=== PATIENT | male | born 1975 | race Caucasian/White ===

== ENCOUNTER → 2017-01-18 | Outpatient (CLI) | payer BC ==
--- NOTE | 2017-01-18 09:11 | US ---
EXAMINATION TYPE: US liver DATE OF EXAM: 01/18/2017 COMPARISON: NONE CLINICAL HISTORY: R94.5 Abnormal Liver Enzymes. EXAM MEASUREMENTS: Liver Length: 18.9 cm Gallbladder Wall: 0.3 cm CBD: 0.3 cm Right Kidney: 12.0 x 5.6 x 5.2 cm Patient of large body habitus Pancreas: Obscured by bowel gas Liver: Increased attenuation, decreased visualization of vessels suggestive of fatty infiltrate, thania e focal fatty sparing adjacent to gallbladder, enlarged Gallbladder: probable non-shadowing stones Evidence for sonographic Joseph's sign: No CBD: wnl Right Kidney: wnl Visualized liver is heterogeneously hyperechoic in appearance. No suspicious intrahepatic ductal dila tation is seen. Evaluation for focal masses is suboptimal due to the heterogeneity. No shadowing mobi le gallstones are seen in gallbladder. Shadowing small round hyperechoic areas could reflect small po lyps or gallbladder sludge. IMPRESSION: Heterogeneous hyperechoic appearance of liver is likely on basis of diffuse fatty infiltr ation, underlying hepatocellular disease is not excluded. Imaging guided random biopsy for tissue franklin lysis can be performed if desired.
== END ==
LOC: RADUSWWP 08:16
PROVIDERS: ATTEND Family Medicine
DX: R94.5 Abnormal results of liver function studies (principal)
CPT/HCPCS: 76705

== ENCOUNTER → 2018-01-18 | Outpatient (CLI) | payer BC ==
--- NOTE | 2018-01-18 18:24 | US ---
EXAMINATION TYPE: US venous doppler duplex LE LT DATE OF EXAM: 01/18/2018 6:09 PM COMPARISON: NONE CLINICAL HISTORY: Pain in left thigh M79.652. Intermittent left leg pain x 3 months SIDE PERFORMED: Left TECHNIQUE: The lower extremity deep venous system is examined utilizing real time linear array sonog feliberto with graded compression, doppler sonography and color-flow sonography. VESSELS IMAGED: External Iliac Vein (EIV) Common Femoral Vein Deep Femoral Vein Greater Saphenous Vein * Femoral Vein Popliteal Vein Small Saphenous Vein * Proximal Calf Veins (* superficial vessels) Left Leg: Appears negative for DVT IMPRESSION: No evidence of deep venous thrombosis in the left leg.
== END | disposition home or self-care (01) ==
LOC: RADUSMAIN 17:43
PROVIDERS: ATTEND Family Medicine
DX: M79.652 Pain in left thigh (principal)

== ENCOUNTER 2018-03-04 22:13 | Observation (INO) | payer BC ==
[2018-03-04] MEDS ORDERED: ASPIRIN 81 MG PO STA (23:05)
--- NOTE | 2018-03-04 23:08 | ED ---
Chest Pain HPI - General Chief Complaint: Chest Pain Stated Complaint: Chest Pain/OPAL Time Seen by Provider: 03/04/18 22:58 Source: patient, RN notes reviewed, old records reviewed Mode of arrival: ambulatory Limitations: no limitations - History of Present Illness Initial Comments: This Patient is a 42-year-old male presents to the emergency department today with chief complaint of onset of left-sided chest pain radiating towards the shoulder at 5 PM this evening. He reports associated symptoms including shortness of breath and occasional diaphoresis. Patient reports that pain seems to be improved with leaning forward. He states that he has no nausea or vomiting episodes. He has no significant previous cardiac history. He is a previous smoker. He quit 4 years ago. No history of early from heart disease with his family. - Related Data Home Medications Medication Instructions Recorded Confirmed Allopurinol [Zyloprim] 100 mg PO DAILY 11/26/13 11/28/13 Allergies Allergy/AdvReac Type Severity Reaction Status Date / Time Penicillins Allergy Unknown Unknown Verified 03/04/18 22:17 Childhood Review of Systems ROS Statement: Those systems with pertinent positive or pertinent negative responses have been documented in the HPI. ROS Other: All systems not noted in ROS Statement are negative. EKG Findings - EKG Comments: EKG Findings:: EKG performed at 2226 shows normal sinus rhythm normal EKG noted. Ventricular rate of 85 bpm. Was 184. QRS duration 90 ms. QT QTc is 340/44 ms. No evidence of ST elevation or T-wave inversion. Past Medical History Past Medical History: No Reported History Additional Past Medical History / Comment(s): hernia, gout, glacuoma History of Any Multi-Drug Resistant Organisms: None Reported Past Surgical History: Hernia Repair Additional Past Surgical History / Comment(s): colonoscopy, rubber band hemorrhoid ligation Past Anesthesia/Blood Transfusion Reactions: No Reported Reaction Past Psychological History: No Psychological Hx Reported Smoking Status: Former smoker Past Alcohol Use History: None Reported Past Drug Use History: None Reported General Exam - General Exam Comments Initial Comments: This is a 42-year-old male. Alert and oriented. No significant distress. Limitations: no limitations General appearance: alert, in no apparent distress Head exam: Present: atraumatic, normocephalic, normal inspection Eye exam: Present: normal appearance, PERRL, EOMI. Absent: scleral icterus, conjunctival injection, periorbital swelling ENT exam: Present: normal exam, mucous membranes moist Neck exam: Present: normal inspection. Absent: tenderness, meningismus, lymphadenopathy Respiratory exam: Present: normal lung sounds bilaterally. Absent: respiratory distress, wheezes, rales, rhonchi, stridor Cardiovascular Exam: Present: regular rate, normal rhythm, normal heart sounds. Absent: systolic murmur, diastolic murmur, rubs, gallop, clicks GI/Abdominal exam: Present: soft, normal bowel sounds. Absent: distended, tenderness, guarding, rebound, rigid Extremities exam: Present: normal inspection, full ROM, normal capillary refill. Absent: tenderness, pedal edema, joint swelling, calf tenderness Back exam: Present: normal inspection Neurological exam: Present: alert, oriented X3, CN II-XII intact Psychiatric exam: Present: normal affect, normal mood Course Vital Signs 03/04/18 03/04/18 03/04/18 22:15 23:47 23:52 Temperature 98.1 F Pulse Rate 101 H 80 92 Respiratory 18 16 16 Rate Blood Pressure 167/88 141/85 138/86 O2 Sat by Pulse 99 98 98 Oximetry 03/04/18 03/05/18 23:57 00:02 Temperature Pulse Rate 67 93 Respiratory 16 16 Rate Blood Pressure 125/75 122/73 O2 Sat by Pulse 96 97 Oximetry - Reevaluation(s) Reevaluation #1: 03/05/18 00:27 Patient is reevaluated this time. He does report that the pain is relieved after receiving nitro. Chest Pain MDM - [facility] 42-year-old male presents emergency Department chief complaint of left-sided chest pain radiating towards his left shoulder. Associated shortness of breath. He writes emergency department hypertensive 170/110. Patient initially EKG was reviewed and negative for any significant changes. He reports the pain seems to be worse on exertion. Patient reports difficult for him to have from the car to the hospital. Initial troponin is negative. He does feel better after receiving nitroglycerin. He was given a by mouth aspirin. He is down relates that the pain is a 4 out of 10. With his symptoms are improving with nitroglycerin like to admit the Patient for serial cardiac enzymes and cardiac consultation. Patient agrees to the admission. All questions answered return parameters were discussed. Chest x-rays negative for any acute cardiopulmonary disease. Normal heart. Disposition Clinical Impression: Chest pain, LANG (dyspnea on exertion) Disposition: ADMITTED IP TO THIS HOSP Condition: Stable Is patient prescribed a controlled substance at d/c from ED?: No Referrals: Bentley Lockhart MD [Primary Care Provider] - 1-2 days Time of Disposition: 00:48
[2018-03-04 23:48] VITALS: RESP 16
[2018-03-04] MEDS: NITROGLYCERIN SL TABS 0.4 MG TAB SUBLINGUAL STA ×3 (23:48→23:58)
[2018-03-05 00:02] LABS: Basophils % (A) 0 %; Eosinophils # (A) 0.3 k/uL (0-0.7); Eosinophils % (A) 2 %; HCT 44.5 % (39.0-53.0); HGB 15.1 gm/dL (13.0-17.5); Lymphocytes # (A) 1.9 k/uL (1.0-4.8); Lymphocytes % (A) 17 %; MCH 29.9 pg (25.0-35.0); MCHC 33.9 g/dL (31.0-37.0); MCV 88.2 fL (80.0-100.0); Mean Platelet Volume 6.9; Monocytes # (A) 0.7 k/uL (0-1.0); Monocytes % (A) 7 %; Neutrophils # (A) 7.9 k/uL (1.3-7.7); Neutrophils % (A) 71 %; Platelet Count 215 k/uL (150-450); RBC 5.04 m/uL (4.30-5.90); RDW 13.2 % (11.5-15.5)
[2018-03-05 00:15] LABS: Partial Thromboplastin Time 26.6 sec (22.0-30.0); Prothrombin Time 10.1 sec (9.0-12.0)
[2018-03-05 00:16] LABS: ALT 59 U/L (21-72); AST 34 U/L (17-59); Albumin 4.1 g/dL (3.5-5.0); Alkaline Phosphatase 90 U/L (38-126); Amylase 42 U/L (30-110); Anion Gap 8 mmol/L; Blood Urea Nitrogen 17 mg/dL (9-20); Calcium 9.7 mg/dL (8.4-10.2); Carbon Dioxide 27 mmol/L (22-30); Chloride 104 mmol/L (98-107); Glucose 111 mg/dL (74-99); Lipase 73 U/L (23-300); Magnesium 1.9 mg/dL (1.6-2.3); Potassium 4.7 mmol/L (3.5-5.1); Sodium 139 mmol/L (137-145); Total Bilirubin 0.7 mg/dL (0.2-1.3); Total Protein 6.9 g/dL (6.3-8.2)
[2018-03-05 00:23] LABS: Creatine Kinase 248 U/L (55-170)
--- NOTE | 2018-03-05 00:23 | XR ---
EXAMINATION TYPE: XR chest 2V DATE OF EXAM: 03/05/2018 COMPARISON: NONE HISTORY: Chest pain TECHNIQUE: Frontal and lateral views of the chest are obtained. FINDINGS: There is no heart failure nor confluent pneumonic infiltrate. Costophrenic angles are rochelle r. Bony thorax is intact. IMPRESSION: No active cardiopulmonary disease. Normal heart.
[2018-03-05 00:36] LABS: Creatine Kinase MB 1.4 ng/mL (0.0-2.4); Troponin I <0.012 ng/mL (0.000-0.034)
[2018-03-05] MEDS ORDERED: NITROGLYCERIN SL TABS 0.4 MG TAB SUBLINGUAL PRN (00:49)
[2018-03-05] MEDS ORDERED: MORPHINE SULFATE 4 MG/ML SYRINGE IV PRN (00:49)
[2018-03-05 02:06] VITALS: BMI 38.5
[2018-03-05 07:01] LABS: Creatine Kinase 196 U/L (55-170)
[2018-03-05 07:14] LABS: Creatine Kinase MB 1.3 ng/mL (0.0-2.4); Troponin I <0.012 ng/mL (0.000-0.034)
--- NOTE | 2018-03-05 11:22 | ECHOF ---
Referral Reason:Chest pain MEASUREMENTS -------- HEIGHT: 182.9 cm WEIGHT: 128.4 kg BP: RVIDd: 2.8 cm (< 3.3) IVSd: 1.2 cm (0.6 - 1.1) LVIDd: 5.0 cm (3.9 - 5.3) LVPWd: 1.5 cm (0.6 - 1.1) IVSs: 1.5 cm LVIDs: 3.3 cm LVPWs: 1.7 cm Ao Diam: 3.2 cm (2.0 - 3.7) AV Cusp: 2.4 cm (1.5 - 2.6) LA Diam: 2.9 cm (2.7 - 3.8) MV EXCURSION: 28.026 mm (> 18.000) MV EF SLOPE: 131 mm/s (70 - 150) EPSS: 1.7 cm MV E Tao: 0.71 m/s MV DecT: 222 ms MV A Tao: 0.66 m/s MV E/A Ratio: 1.08 RAP: 5.00 mmHg RVSP: 9.56 mmHg FINDINGS -------- Sinus rhythm. Morbid Obesity The left ventricular size is normal. There is mild concentric left ventricular hypertrophy. Overa ll left ventricular systolic function is normal with, an EF between 55 - 60 %. The right ventricle is normal in size. The left atrial size is normal. The right atrial size is normal. 5.0mg OF Lumason UTLIZED: 2 OR MORE WALL SEGMENTS NOT VISUALIZED. The aortic valve is trileaflet, and appears structurally normal. No aortic stenosis or regurgitation. Mild mitral regurgitation is present. Mild tricuspid regurgitation present. There is no evidence of pulmonary hypertension. The right v entricular systolic pressure, as measured by Doppler, is 9.56mmHg. The pulmonic valve was not well visualized. The aortic root size is normal. There is no pericardial effusion. CONCLUSIONS -------- 1. Morbid Obesity 2. The left ventricular size is normal. 3. There is mild concentric left ventricular hypertrophy. 4. Overall left ventricular systolic function is normal with, an EF between 55 - 60 %. 5. The right ventricle is normal in size. 6. The left atrial size is normal. 7. The right atrial size is normal. 8. 5.0mg OF Lumason UTLIZED: 2 OR MORE WALL SEGMENTS NOT VISUALIZED. 9. The aortic valve is trileaflet, and appears structurally normal. No aortic stenosis or regurgitati on. 10. Mild mitral regurgitation is present. 11. Mild tricuspid regurgitation present. 12. There is no evidence of pulmonary hypertension. 13. The right ventricular systolic pressure, as measured by Doppler, is 9.56mmHg. 14. The pulmonic valve was not well visualized. 15. The aortic root size is normal. 16. There is no pericardial effusion. SURVEYOR HELPER: Dayana Park RDCS
--- NOTE | 2018-03-05 11:36 | P.CRDCN ---
History of Present Illness History of present illness: Mr. Mcclellan is a pleasant 42-year-old male past medical history significant for gout. He denies history of coronary artery disease, hypertension , dyslipidemia or diabetes mellitus. We have been asked to see him in consultation for chest pain. He states while driving home from work yesterday around 5 PM he started feeling an achy heavy sensation in the left precordial region associated with shortness of breath and mild diaphoresis. The symptoms persisted for approximately one hour and then started radiating into the left shoulder. He continued to feel short of breath and mildly diaphoretic. He denies radiation to the arm, back, neck or jaw. Denies palpitations, dizziness , nausea, vomiting or cough. He states this pain persisted until approximately 10 PM when he came to the hospital for evaluation. He was given sublingual nitroglycerin and states this pain started to subside. No specific aggravating factors he can recall. It seemed to feel mildly better when he sat forward and leaned his head down. He denies associated dizziness, nausea, vomiting or palpitations. At the time of my exam he is seen laying flat in bed in no acute distress. He states his chest feels sore but no further pain. When asked to sit up and lean forward he states the soreness is better. EKG shows sinus mechanism with no acute ST or T-wave abnormalities. Telemetry tracings indicate at 0340 last night he had a second degree type I wenkebach. He was sleeping at the time per nursing staff and had no symptoms. Chest xray is negative for an acute cardiopulmonary process. Laboratory data reviewed, WBC 11, hemoglobin 15.1, platelets 2:15, sodium 139, potassium 4.7, magnesium 1.9, creatinine 0.95, cardiac enzymes negative 2. He takes no daily cardiac medications. Review of Systems At the time of my exam: CONSTITUTIONAL: Denies fever. Denies chills. EYES: Denies blurred vision. Denies vision changes. Denies eye pain. EARS, NOSE, MOUTH & THROAT: Denies headache. Denies sore throat. Denies ear pain. CARDIOVASCULAR: Denies chest pain. Denies shortness of breath. Denies orthopnea. Denies PND. Denies palpitations. RESPIRATORY: Denies cough. GASTROINTESTINAL: Denies abdominal pain. Denies diarrhea. Denies constipation. Denies nausea. Denies vomiting. MUSCULOSKELETAL: Denies myalgias. INTEGUMENTARY: Denies pruitis. Denies rash. NEUROLOGIC: Denies numbness. Denies tingling. Denies weakness. PSYCHIATRIC: Denies anxiety. Denies depression. ENDOCRINE: Denies fatigue. Denies weight change. Denies polydipsia. Denies polyurina. GENITOURINARY: Denies burning, hematuria or urgency with micturation. HEMATOLOGIC: Denies history of anemia. Denies bleeding. Past Medical History Past Medical History: No Reported History Additional Past Medical History / Comment(s): hernia, gout, glaucoma, fatty liver History of Any Multi-Drug Resistant Organisms: None Reported Past Surgical History: Hernia Repair Additional Past Surgical History / Comment(s): colonoscopy, rubber band hemorrhoid ligation, broken collar bone as child Past Anesthesia/Blood Transfusion Reactions: No Reported Reaction Past Psychological History: No Psychological Hx Reported Smoking Status: Former smoker Past Alcohol Use History: None Reported Past Drug Use History: Marijuana Additional Drug Use History / Comment(s): has medical card - Past Family History Mother Family Medical History: Cancer Additional Family Medical History / Comment(s): "female cancer" Father Additional Family Medical History / Comment(s): heroin o/d Medications and Allergies Home Medications Medication Instructions Recorded Confirmed Type Cholecalciferol (Vitamin D3) 2,000 unit PO DAILY 03/05/18 03/05/18 History [Vitamin D3] Febuxostat [Uloric] 40 mg PO DAILY 03/05/18 03/05/18 History Gabapentin [Neurontin] 300 mg PO TID 03/05/18 03/05/18 History Travoprost [Travatan Z 0.004%] 1 drop BOTH EYES HS 03/05/18 03/05/18 History Allergies Allergy/AdvReac Type Severity Reaction Status Date / Time Penicillins Allergy Unknown Unknown Verified 03/04/18 22:17 Childhood Physical Exam Vitals: Vital Signs Temp Pulse Pulse Resp BP BP Pulse Ox 03/05/18 05:55 82 132/78 03/05/18 03:41 16 03/05/18 02:01 97.9 F 81 16 127/83 96 03/05/18 02:00 16 03/05/18 00:02 93 16 122/73 97 03/04/18 23:57 67 16 125/75 96 03/04/18 23:52 92 16 138/86 98 03/04/18 23:47 80 16 141/85 98 03/04/18 22:15 98.1 F 101 H 18 167/88 99 Intake and Output 03/04/18 03/05/18 03/05/18 22:59 06:59 14:59 Other: Voiding Method Toilet # Voids 2 Weight 128.82 kg 128.8 kg Blood pressure 141/96 heart rate 75 afebrile maintaining oxygen saturation on room air GENERAL: This is a 42-year-old male in no apparent distress at the time of my examination. Obese. HEENT: Head is atraumatic, normocephalic. Pupils are equal, round. Sclerae anicteric. Conjunctivae are clear. Mucous membranes of the mouth are moist. Neck is supple. There is no jugular venous distention. No carotid bruit is heard. LUNGS: Clear to auscultation no wheezes, rales or rhonchi. No chest wall tenderness is noted on palpation or with deep breathing. HEART: Regular rate and rhythm without murmurs, rubs or gallops. S1 and S2 heard. ABDOMEN: Soft, nontender. Bowel sounds are heard. No organomegaly noted. EXTREMITIES: No evidence of peripheral edema and no calf tenderness noted. VASCULAR: Radial and dorsalis pedis pulses palpated, no evidence of clubbing. NEUROLOGIC: Patient is awake, alert and oriented x3. Results 03/04/18 23:47 03/04/18 23:47 Cardiac Enzymes 03/04/18 03/04/18 03/05/18 Range/Units 23:47 23:47 06:13 AST 34 (17-59) U/L CK-MB (CK-2) 1.4 1.3 (0.0-2.4) ng/mL Troponin I <0.012 <0.012 (0.000-0.034) ng/mL Coagulation 03/04/18 Range/Units 23:47 PT 10.1 (9.0-12.0) sec APTT 26.6 (22.0-30.0) sec CBC 03/04/18 Range/Units 23:47 WBC 11.0 H (3.8-10.6) k/uL RBC 5.04 (4.30-5.90) m/uL Hgb 15.1 (13.0-17.5) gm/dL Hct 44.5 (39.0-53.0) % Plt Count 215 (150-450) k/uL Comprehensive Metabolic Panel 03/04/18 Range/Units 23:47 Sodium 139 (137-145) mmol/L Potassium 4.7 (3.5-5.1) mmol/L Chloride 104 (98-107) mmol/L Carbon Dioxide 27 (22-30) mmol/L BUN 17 (9-20) mg/dL Creatinine 0.95 (0.66-1.25) mg/dL Glucose 111 H (74-99) mg/dL Calcium 9.7 (8.4-10.2) mg/dL AST 34 (17-59) U/L ALT 59 (21-72) U/L Alkaline Phosphatase 90 (38-126) U/L Total Protein 6.9 (6.3-8.2) g/dL Albumin 4.1 (3.5-5.0) g/dL Current Medications Generic Name Dose Route Start Last Admin Trade Name Freq PRN Reason Stop Dose Admin Aspirin 325 mg 03/06/18 09:00 Aspirin PO DAILY ART Morphine Sulfate 4 mg 03/05/18 00:49 Morphine Sulfate (Inj) IV Q5M PRN Chest Pain Nitroglycerin 0.4 mg 03/05/18 00:49 Nitrostat SUBLINGUAL Q5M PRN Chest Pain Intake and Output 03/04/18 03/05/18 03/05/18 22:59 06:59 14:59 Other: Voiding Method Toilet # Voids 2 Weight 128.82 kg 128.8 kg 03/04/18 23:47 03/04/18 23:47 Assessment and Plan Assessment: ASSESSMENT Chest pain, atypical. An acute coronary event has been ruled out with no EKG evidence of ischemia and negative cardiac enzymes. History of gout Second degree AV block type I, nemesionkeneha PLAN Obtain 2D echocardiogram and doppler study to assess cardiac structure and function. Perform exercise stress echocardiogram to assess for stress induced cardiac ischemia. Recommend he follow up with outpatient sleep study. If stress test is normal he is stable from a cardiac perspective. Thank you kindly for this consultation. Nurse Practitioner note has been reviewed, I agree with a documented findings and plan of care. Patient was seen and examined.
[2018-03-05] MEDS ORDERED: CHOLECALCIFEROL 1,000 UNIT TAB PO SCH (11:45)
[2018-03-05] MEDS ORDERED: ALLOPURINOL 100 MG TAB PO SCH (11:45)
[2018-03-05] MEDS ORDERED: GABAPENTIN 300 MG CAP PO SCH (11:45)
[2018-03-05 11:58] VITALS: BP 146/83; PULSE 90; TEMP 98.4
[2018-03-05] MEDS ORDERED: LATANOPROST 0.005% OPHTH DROPS 2.5 ML BTL BOTH EYES SCH (21:00)
--- NOTE | 2018-03-06 00:05 | HP ---
HISTORY AND PHYSICAL This is a History and Physical and a Discharge Summary. DATE OF ADMISSION: 03/05/2018. DATE OF DISCHARGE: 03/05/2018. FINAL DIAGNOSES: 1. Left anterior chest wall pain, probably musculoskeletal. 2. Chronic gout. 3. Fatty liver. 4. Gastroesophageal reflux disease. 5. Obesity, body mass index (BMI) 38.4. PRESENTING COMPLAINT: Chest pain. HISTORY OF PRESENTING COMPLAINT: This is a very pleasant 42-year-old patient who follows with Dr. Lockhart. Chronic stable medical conditions include gout, fatty liver, GERD, obesity. The patient was driving home from work when she developed sharp left anterior chest wall pain, lasted for a good 5 to 6 hours. Did go and radiate to his left shoulder. The patient was short of breath. No dizziness. Did have a bit of a sweating episode. Decided to come in. Did not remember picking up anything heavy. Denies any cardiac history. The patient admitted for possible unstable angina, for further cardiac workup. REVIEW OF SYSTEMS: CONSTITUTIONAL: None. HEENT: None. RESPIRATORY: None. CARDIOVASCULAR: As above. GASTROINTESTINAL: Heartburn. GENITOURINARY: None. MUSCULOSKELETAL: As above. DERMATOLOGICAL: None. HEMATOLOGIC: None. LYMPHATIC: None. PSYCHIATRY: None. NEUROLOGIC: None. PAST MEDICAL HISTORY: Gout, fatty liver, GERD. PAST SURGICAL HISTORY: Hernia repair, colonoscopy, rubber band hemorrhoid ligation, broken collarbone. SOCIAL HISTORY: The patient has a marijuana card for glaucoma. Lives with his mother. Works in a company for [employer]. Did smoke in the past. No alcohol. No recreational drugs. FAMILY HISTORY: Mother had female cancer. HOME MEDICATIONS: 1. Neurontin 300 mg t.i.d. 2. Travatan 0.004% 1 drop to both eyes at bedtime. 3. Dilaudid 40 mg p.o. daily. 4. Vitamin D3, 2000 units p.o. daily. ALLERGIES: PENICILLIN. PHYSICAL EXAMINATION: VITAL SIGNS: On presentation, temperature 97.9 pulse 81, respirations 16, blood pressure 127/63, pulse 96 percent on room air. GENERAL APPEARANCE: Well built. BMI 38.4. Sitting up, comfortable. EYES: Pupils are equal. Conjunctivae normal. HEENT: External nose and ears normal. Oral cavity normal. NECK: JVD not raised. Mass not palpable. Respiratory effort normal. LUNGS: Clear. CARDIOVASCULAR: First and second heart sounds are normal. No edema. ABDOMEN: Soft, nontender. Liver and spleen not palpable. LYMPHATIC: No lymph nodes palpable in neck or axillae. PSYCHIATRY: Alert and oriented x3. Mood and affect normal. NEUROLOGIC: Pupils equal. Cranial nerves grossly intact. Power and sensation grossly intact. INVESTIGATIONS: White count 11, hemoglobin 15.1, potassium 4.7. Troponin x2 normal. TSH normal. EKG tracing interpreted by me shows sinus rhythm. Chest x-ray film interpreted by me shows lung francois to be clear. A 2D echocardiogram shows preserved LV function. I was given a verbal report by the nurse, the patient's stress echocardiogram came to back to be negative. DISPOSITION: Home. DISCHARGE MEDICATIONS: Home medications to continue. FOLLOWUP: Follow up with Dr. Lockhart in 3 days. MMODL / IJN: [id number] /
[2018-03-06] MEDS ORDERED: ASPIRIN 325 MG TAB PO SCH (09:00)
--- NOTE | 2018-03-06 16:16 | ECHOS ---
STRESS ECHOCARDIOGRAM INDICATIONS: Chest pain. BASELINE HEART RATE: 95 BASELINE BLOOD PRESSURE: 125/65 MAXIMUM HEART RATE: 156 MAXIMUM BLOOD PRESSURE: 222/56 85% MPHR: 151 100% MPHR: 178 METS: 7.1 MAXIMUM STAGE REACHED: 2 TOTAL EXERCISE TIME: 5:00 CLINICAL INFORMATION: The patient was exercised for a total period of 5 minutes. The peak heart rate of 156 was achieved. Maximum blood pressure of 218/77 mmHg was noted. The patient did not complain of any chest pain during the test. The resting EKG shows normal sinus rhythm with normal NM interval and QRS duration and normal ST-T waves. At the peak exercise J- point depression with upsloping ST segments are noted. The baseline echocardiographic images reveals normal left ventricular chamber size with normal left ventricular systolic function. In the immediate postexercise normal increase in the wall thickness and contractility is noted. FINAL IMPRESSION: This stress echocardiographic study is negative for stress-induced ischemia. EKG portion of the stress test is not suggestive of ischemia. MMODL / IJN: [id number] /
== END 2018-03-05 16:27 | disposition home or self-care (01) ==
LOC: EC 22:13 → 3OBS 03-05 00:48
PROVIDERS: ADMIT Hospitalist; ATTEND Hospitalist
DX: R07.89 Other chest pain (principal); I44.1 Atrioventricular block, second degree; R61 Generalized hyperhidrosis; K76.0 Fatty (change of) liver, not elsewhere classified; H40.9 Unspecified glaucoma; E66.9 Obesity, unspecified; Z68.38 Body mass index [BMI] 38.0-38.9, adult; M1A.9XX0 Chronic gout, unspecified, without tophus (tophi); K21.9 Gastro-esophageal reflux disease without esophagitis; Z79.899 Other long term (current) drug therapy; Z88.0 Allergy status to penicillin; Z87.891 Personal history of nicotine dependence; Z80.49 Family history of malignant neoplasm of other genital organs; Z81.3 Family history of other psychoactive substance abuse and dependence
CPT/HCPCS: 99285 ×2; 36415; 93005; 93306; 93351; 80053; 84443; 82150; 82550 ×2; 82553 ×2; 83690; 83735; 84484 ×2; 85025; 85610; 85730; 71046; G0378; Q9950

== ENCOUNTER → 2019-11-13 | Outpatient (CLI) | payer BC ==
--- NOTE | 2019-11-13 11:51 | XR ---
EXAMINATION TYPE: XR ribs RT DATE OF EXAM: 11/13/2019 CLINICAL HISTORY: Pain, Fall Four views of the ribs fail demonstrate evidence for displaced rib fracture or secondary sign of rib fracture. Visualized lungs are clear. No evidence for pneumothorax. IMPRESSION: 1. No displaced rib fractures seen. ICD 10 NO FRACTURE, INITIAL EVALUATION
--- NOTE | 2019-11-13 11:51 | XR ---
EXAMINATION TYPE: XR chest 2V DATE OF EXAM: 11/13/2019 COMPARISON: NONE HISTORY: Chest pain TECHNIQUE: Frontal and lateral views of the chest are obtained. FINDINGS: There is no focal air space opacity. No evidence for pneumothorax. No pleural effusion. The cardiac silhouette size is within normal limits. The osseous structures are grossly intact. IMPRESSION: 1. No acute cardiopulmonary process.
== END | disposition home or self-care (01) ==
LOC: RADXRMAIN 11:25
PROVIDERS: ATTEND Family Medicine
DX: R10.11 Right upper quadrant pain (principal)
CPT/HCPCS: 71046

== ENCOUNTER 2020-01-27 10:35 | Inpatient (IN) | payer BC ==
[2020-01-27] MEDS ORDERED: SODIUM CHLORIDE 0.9% 1,000 ML IV STA ×2 (10:45→12:15)
[2020-01-27] MEDS ORDERED: ONDANSETRON 4 MG/2 ML VIAL IVP STA (10:45)
--- NOTE | 2020-01-27 10:48 | ED ---
Abdominal Pain HPI - General Chief Complaint: Abdominal Pain Stated Complaint: abd pain Time Seen by Provider: 01/27/20 10:39 Source: patient, RN notes reviewed Mode of arrival: ambulatory Limitations: no limitations - History of Present Illness Initial Comments: This a 44-year-old male presents emergency Department with chief complaint of right lower quadrant abdominal pain. Patient states that increase pain last couple days. Patient went seen his primary care physician's morning who recommended from the research rule out acute appendicitis. Patient states that he did have increasing nausea and vomiting today. Denies any back pain he's had prior left inguinal hernia surgery. Patient has no dysuria no hematuria no fevers or chills no chest pain or shortness breath. - Related Data Home Medications Medication Instructions Recorded Confirmed Cholecalciferol (Vitamin D3) 2,000 unit PO DAILY 03/05/18 01/27/20 [Vitamin D3] Febuxostat [Uloric] 40 mg PO DAILY 03/05/18 01/27/20 Travoprost [Travatan Z 0.004%] 1 drop BOTH EYES HS 03/05/18 01/27/20 Allergies Allergy/AdvReac Type Severity Reaction Status Date / Time Penicillins Allergy Unknown Unknown Verified 01/27/20 11:05 Childhood Review of Systems ROS Statement: Those systems with pertinent positive or pertinent negative responses have been documented in the HPI. ROS Other: All systems not noted in ROS Statement are negative. Past Medical History Past Medical History: No Reported History Additional Past Medical History / Comment(s): hernia, gout, glaucoma, fatty l iver History of Any Multi-Drug Resistant Organisms: None Reported Past Surgical History: Hernia Repair Additional Past Surgical History / Comment(s): colonoscopy, rubber band hemorrhoid ligation, broken collar bone as child Past Anesthesia/Blood Transfusion Reactions: No Reported Reaction Past Psychological History: No Psychological Hx Reported Smoking Status: Former smoker Past Alcohol Use History: None Reported Past Drug Use History: Marijuana - Past Family History Mother Family Medical History: Cancer Additional Family Medical History / Comment(s): "female cancer" Father Additional Family Medical History / Comment(s): heroin o/d General Exam Limitations: no limitations General appearance: alert, in no apparent distress Head exam: Present: atraumatic, normocephalic, normal inspection Eye exam: Present: normal appearance, PERRL, EOMI. Absent: scleral icterus, conjunctival injection, periorbital swelling Neck exam: Present: normal inspection, full ROM. Absent: tenderness, meningismus, lymphadenopathy Respiratory exam: Present: normal lung sounds bilaterally. Absent: respiratory distress, wheezes, rales, rhonchi, stridor Cardiovascular Exam: Present: regular rate, normal rhythm, normal heart sounds. Absent: systolic murmur, diastolic murmur, rubs, gallop, clicks GI/Abdominal exam: Present: soft, tenderness (Moderate right lower quadrant tenderness), normal bowel sounds. Absent: distended, guarding, rebound, rigid Back exam: Absent: CVA tenderness (R), CVA tenderness (L) Neurological exam: Present: alert, oriented X3 Skin exam: Present: warm, dry, intact, normal color. Absent: rash Course Vital Signs 01/27/20 10:38 Temperature 98.6 F Pulse Rate 84 Respiratory 19 Rate Blood Pressure 150/97 O2 Sat by Pulse 99 Oximetry Medical Decision Making - Medical Decision Making 44-year-old presented for abdominal pain CT shows evidence of 6 cm abscess with omental changes concerning for acute appendicitis with rupture and abscess formation. Patient was started on Levaquin, Flagyl as he has an ALLERGY to penicillin. Patient is given IV fluid hydration and will be admitted to Dr. Foote. - Lab Data Result diagrams: 01/27/20 10:53 01/27/20 10:53 Lab Results 01/27/20 01/27/20 01/27/20 Range/Units 10:53 10:53 10:53 WBC 13.3 H (3.8-10.6) k/uL RBC 5.28 (4.30-5.90) m/uL Hgb 15.7 (13.0-17.5) gm/dL Hct 46.5 (39.0-53.0) % MCV 88.0 (80.0-100.0) fL MCH 29.7 (25.0-35.0) pg MCHC 33.7 (31.0-37.0) g/dL RDW 13.1 (11.5-15.5) % Plt Count 273 (150-450) k/uL Neutrophils % 74 % Lymphocytes % 15 % Monocytes % 7 % Eosinophils % 2 % Basophils % 1 % Neutrophils # 9.9 H (1.3-7.7) k/uL Lymphocytes # 1.9 (1.0-4.8) k/uL Monocytes # 1.0 (0-1.0) k/uL Eosinophils # 0.3 (0-0.7) k/uL Basophils # 0.1 (0-0.2) k/uL Sodium 138 (137-145) mmol/L Potassium 4.0 (3.5-5.1) mmol/L Chloride 104 (98-107) mmol/L Carbon Dioxide 24 (22-30) mmol/L Anion Gap 10 mmol/L BUN 8 L (9-20) mg/dL Creatinine 0.71 (0.66-1.25) mg/dL Est GFR (CKD-EPI)AfAm >90 (>60 ml/min/1.73 sqM) Est GFR (CKD-EPI)NonAf >90 (>60 ml/min/1.73 sqM) Glucose 111 H (74-99) mg/dL Plasma Lactic Acid Ramin 0.9 (0.7-2.0) mmol/L Calcium 9.2 (8.4-10.2) mg/dL Total Bilirubin 2.3 H (0.2-1.3) mg/dL AST 28 (17-59) U/L ALT 30 (4-49) U/L Alkaline Phosphatase 94 (38-126) U/L Total Protein 7.5 (6.3-8.2) g/dL Albumin 4.4 (3.5-5.0) g/dL Amylase 54 (30-110) U/L Lipase 72 (23-300) U/L Urine Color Urine Appearance (Clear) Urine pH (5.0-8.0) Ur Specific [place] (1.001-1.035) Urine Protein (Negative) Urine Glucose (UA) (Negative) Urine Ketones (Negative) Urine Blood (Negative) Urine Nitrite (Negative) Urine Bilirubin (Negative) Urine Urobilinogen (<2.0) mg/dL Ur Leukocyte Esterase (Negative) 01/27/20 Range/Units 10:57 WBC (3.8-10.6) k/uL RBC (4.30-5.90) m/uL Hgb (13.0-17.5) gm/dL Hct (39.0-53.0) % MCV (80.0-100.0) fL MCH (25.0-35.0) pg MCHC (31.0-37.0) g/dL RDW (11.5-15.5) % Plt Count (150-450) k/uL Neutrophils % % Lymphocytes % % Monocytes % % Eosinophils % % Basophils % % Neutrophils # (1.3-7.7) k/uL Lymphocytes # (1.0-4.8) k/uL Monocytes # (0-1.0) k/uL Eosinophils # (0-0.7) k/uL Basophils # (0-0.2) k/uL Sodium (137-145) mmol/L Potassium (3.5-5.1) mmol/L Chloride (98-107) mmol/L Carbon Dioxide (22-30) mmol/L Anion Gap mmol/L BUN (9-20) mg/dL Creatinine (0.66-1.25) mg/dL Est GFR (CKD-EPI)AfAm (>60 ml/min/1.73 sqM) Est GFR (CKD-EPI)NonAf (>60 ml/min/1.73 sqM) Glucose (74-99) mg/dL Plasma Lactic Acid Ramin (0.7-2.0) mmol/L Calcium (8.4-10.2) mg/dL Total Bilirubin (0.2-1.3) mg/dL AST (17-59) U/L ALT (4-49) U/L Alkaline Phosphatase (38-126) U/L Total Protein (6.3-8.2) g/dL Albumin (3.5-5.0) g/dL Amylase (30-110) U/L Lipase (23-300) U/L Urine Color Yellow Urine Appearance Clear (Clear) Urine pH 7.5 (5.0-8.0) Ur Specific [place] 1.018 (1.001-1.035) Urine Protein Negative (Negative) Urine Glucose (UA) Negative (Negative) Urine Ketones 1+ H (Negative) Urine Blood Negative (Negative) Urine Nitrite Negative (Negative) Urine Bilirubin Negative (Negative) Urine Urobilinogen <2.0 (<2.0) mg/dL Ur Leukocyte Esterase Negative (Negative) Disposition Clinical Impression: Acute appendicitis with appendiceal abscess Disposition: ADMITTED IP TO THIS [facility] Condition: Fair Referrals: Bentley Lockhart MD [Primary Care Provider] - 1-2 days
[2020-01-27 11:01] LABS: Basophils # (A) 0.1 k/uL (0-0.2); Basophils % (A) 1 %; Eosinophils # (A) 0.3 k/uL (0-0.7); Eosinophils % (A) 2 %; HCT 46.5 % (39.0-53.0); HGB 15.7 gm/dL (13.0-17.5); Lymphocytes # (A) 1.9 k/uL (1.0-4.8); Lymphocytes % (A) 15 %; MCH 29.7 pg (25.0-35.0); MCHC 33.7 g/dL (31.0-37.0); Mean Platelet Volume 7.2; Monocytes % (A) 7 %; Neutrophils # (A) 9.9 k/uL (1.3-7.7); Neutrophils % (A) 74 %; Platelet Count 273 k/uL (150-450); RBC 5.28 m/uL (4.30-5.90); RDW 13.1 % (11.5-15.5); WBC 13.3 k/uL (3.8-10.6)
[2020-01-27 11:10] LABS: ALT 30 U/L (4-49); AST 28 U/L (17-59); African American GFR (CKD) >90 (>60 ml/min/1.73 sqM); Albumin 4.4 g/dL (3.5-5.0); Alkaline Phosphatase 94 U/L (38-126); Amylase 54 U/L (30-110); Anion Gap 10 mmol/L; Blood Urea Nitrogen 8 mg/dL (9-20); Calcium 9.2 mg/dL (8.4-10.2); Carbon Dioxide 24 mmol/L (22-30); Chloride 104 mmol/L (98-107); Glucose 111 mg/dL (74-99); Lipase 72 U/L (23-300); Non-African American GFR(CKD) >90 (>60 ml/min/1.73 sqM); Sodium 138 mmol/L (137-145); Total Bilirubin 2.3 mg/dL (0.2-1.3); Total Protein 7.5 g/dL (6.3-8.2)
[2020-01-27 11:17] LABS: Appearance,Urine Clear (Clear); Bilirubin,Urine Negative (Negative); Blood,Urine Negative (Negative); Color,Urine Yellow; Glucose,Urine (UA) Negative (Negative); Ketones,Urine 1+ (Negative); Leukocyte Esterase,Urine Negative (Negative); Nitrite,Urine Negative (Negative); PH, Urine 7.5 (5.0-8.0); Protein,Urine Negative (Negative); Specific Gravity,Urine 1.018 (1.001-1.035); Urobilinogen,Urine <2.0 mg/dL (<2.0)
[2020-01-27] MEDS ORDERED: LEVOFLOXACIN 750MG-D5W PMX 750 MG in DEXTROSE/WATER 1 150ML.BAG IVPB STA (12:10)
[2020-01-27] MEDS ORDERED: HYDROmorphone 0.5 MG/0.5 ML SYRINGE IVP PRN (12:12)
[2020-01-27] MEDS ORDERED: NALOXONE 0.4 MG/ML 1 ML VIAL IV PRN ×2 (12:12→17:56)
--- NOTE | 2020-01-27 12:12 | CT ---
EXAMINATION TYPE: CT abdomen pelvis w con DATE OF EXAM: 01/27/2020 COMPARISON: None INDICATION: RLQ abdominal pain DLP: 2203.3 mGycm, Automated exposure control for dose reduction was used. CONTRAST: 100 ml mL of Isovue 300. Study performed without Oral Contrast TECHNIQUE: Axial images were obtained from above the diaphragm to the pubic rami in the axial plane a t 5 mm thick sections. Reconstructed images are reviewed on the computer in the coronal plane. FINDINGS: Limited CT sections are obtained the lung bases. The lung bases are clear. CT ABDOMEN: Diffuse increased densities along the anterior margin likely is some omental caking. Ther e appears be a fat collection within the oblique left abdominal muscle. Liver: Moderate fatty infiltration is the liver. No discrete masses or cysts are evident. Some minima l ascites may be adjacent to the liver. Spleen: Normal. Minimal ascites is adjacent to the spleen. Pancreas: Normal Adrenal glands: The adrenal glands are normal. Gallbladder: Normal Kidneys: No masses are evident. No hydronephrosis is present. Tiny cortical renal cyst is identifie d on delayed images within the left kidney. A 0.5 cm nonobstructing renal stones in the mid left kidn ey. Delayed images were obtained through the kidneys. Aorta: Vascular calcification is within the aorta. Inferior vena cava: Normal. CT PELVIS: Some free fluid is within the pelvis. Inflammatory changes are adjacent to the ascending colon. There is a 6.6 x 3.2 x 4.8 cm hypodensity w ithin the left paracolic gutter. Abscess should be considered. The studies performed without oral con trast limiting bowel evaluation. Fecal debris is within the distal colon. Appendix: Not identified. Urinary bladder: Decompressed with limited evaluation. Genitourinary structures: Prostate appears normal. Osseous structures: No suspicious lytic or sclerotic lesions. IMPRESSIONS: 1. There is a 6.6 x 3.2 x 4.8 cm hypodensity in the right paracolic gutter inferior to the cecum jina picious for abscess. Correlate for acute appendicitis. The appendix is not identified during this exa m. 2. Small amount of ascites adjacent to the liver spleen and within the pelvis. 3. Diffuse increased density within the anterior intraperitoneal region suspicious for omental caking . 4. Moderate fatty infiltration throughout the liver. 5. Nonobstructing left renal stone. 6. Report was called to emergency room, Jordan Whittaker by by telephone 1207 hours 01/27/2020.
[2020-01-27] MEDS ORDERED: SODIUM CHLORIDE 0.9% 1,000 ML IV SCH (12:15)
[2020-01-27] MEDS: metroNIDAZOLE 500 MG TAB PO SCH ×3 (12:41→22:03)
--- NOTE | 2020-01-27 14:05 | P.GSHP ---
History of Present Illness H&P Date: 01/27/20 Chief Complaint: Abdominal pain CHIEF COMPLAINT: Abdominal pain HISTORY OF PRESENT ILLNESS: 44-year-old male who presented to the emergency room with chief complaint of abdominal pain. Patient states he began having right lower quadrant abdominal pain on Sunday. The pain persisted and he went to his primary care physicians office this morning and was referred to the emergency room. Patient states he was nauseous yesterday. He reports an episode of vomiting this morning. Denies fever or chills. Patient currently rating his pain 7/10. PAST MEDICAL HISTORY: See list. PAST SURGICAL HISTORY: See list. MEDICATIONS: See list. ALLERGIES: See list. SOCIAL HISTORY: No illicit drug use. REVIEW OF SYSTEMS: CONSTITUTIONAL: Denies fever or chills. HEENT: Denies blurred vision, vision changes, or eye pain. Denies hemoptysis CARDIOVASCULAR: Denies chest pain or pressure. RESPIRATORY: No shortness of breath. GASTROINTESTINAL: See HPI for pertinent findings HEMATOLOGIC: Denies bleeding disorders. GENITOURINARY: Denies any blood in urine or increased urinary frequency. SKIN: Denies pruitis. Denies rash. PHYSICAL EXAM: VITAL SIGNS: Reviewed GENERAL: Well-developed in no acute distress. HEENT: No sclera icterus. Extraocular movements grossly intact. Moist buccal mucosa. Head is atraumatic, normocephalic. No nasal drainage. ABDOMEN: Soft. Obese. Nondistended. Tenderness with palpation to right lower quadrant. NEUROLOGIC: Alert and oriented. Cranial nerves II through XII grossly intact. LABORATORY DATA: WBC 13.3. Hemoglobin 15.7. Platelet count 273. Lactic acid 0.9. IMAGING: CT abdomen and pelvis: 6.6 x 3.2 x 4.8 hypodensity in the right paracolic gutter inferior to the cecum suspicious for abscess. Correlate for acute appendicitis. Small amount of ascites adjacent to the liver and spleen and within the pelvis. ASSESSMENT: 1. Abdominal pain 2. Acute appendicitis PLAN: -NPO -Monitor WBC. Continue IV antibiotics -Patient scheduled for laparoscopic appendectomy with Dr. Foote Physician Public Records Researcher note has been reviewed by physician. Signing provider agrees with the documented findings, assessment, and plan of care. Past Medical History Past Medical History: No Reported History Additional Past Medical History / Comment(s): hernia, gout, glaucoma, fatty liver History of Any Multi-Drug Resistant Organisms: None Reported Past Surgical History: Hernia Repair Additional Past Surgical History / Comment(s): colonoscopy, rubber band hemorrhoid ligation, broken collar bone as child Past Anesthesia/Blood Transfusion Reactions: No Reported Reaction Past Psychological History: No Psychological Hx Reported Smoking Status: Former smoker Past Alcohol Use History: None Reported Past Drug Use History: Marijuana - Past Family History Mother Family Medical History: Cancer Additional Family Medical History / Comment(s): "female cancer" Father Additional Family Medical History / Comment(s): heroin o/d Medications and Allergies Home Medications Medication Instructions Recorded Confirmed Type Cholecalciferol (Vitamin D3) 2,000 unit PO DAILY 03/05/18 01/27/20 History [Vitamin D3] Febuxostat [Uloric] 40 mg PO DAILY 03/05/18 01/27/20 History Travoprost [Travatan Z 0.004%] 1 drop BOTH EYES HS 03/05/18 01/27/20 History Allergies Allergy/AdvReac Type Severity Reaction Status Date / Time Penicillins Allergy Unknown Unknown Verified 01/27/20 11:05 Childhood Surgical - Exam Vital Signs Temp Pulse Resp BP Pulse Ox 98.6 F 84 19 150/97 99 01/27/20 10:38 01/27/20 10:38 01/27/20 10:38 01/27/20 10:38 01/27/20 10:38 Results - Labs 01/27/20 10:53 01/27/20 10:53 Abnormal Lab Results - Last 24 Hours (Table) 01/27/20 01/27/20 01/27/20 Range/Units 10:53 10:53 10:57 WBC 13.3 H (3.8-10.6) k/uL Neutrophils # 9.9 H (1.3-7.7) k/uL BUN 8 L (9-20) mg/dL Glucose 111 H (74-99) mg/dL Total Bilirubin 2.3 H (0.2-1.3) mg/dL Urine Ketones 1+ H (Negative) Diabetes panel 01/27/20 Range/Units 10:53 Sodium 138 (137-145) mmol/L Potassium 4.0 (3.5-5.1) mmol/L Chloride 104 (98-107) mmol/L Carbon Dioxide 24 (22-30) mmol/L BUN 8 L (9-20) mg/dL Creatinine 0.71 (0.66-1.25) mg/dL Glucose 111 H (74-99) mg/dL Calcium 9.2 (8.4-10.2) mg/dL AST 28 (17-59) U/L ALT 30 (4-49) U/L Alkaline Phosphatase 94 (38-126) U/L Total Protein 7.5 (6.3-8.2) g/dL Albumin 4.4 (3.5-5.0) g/dL Calcium panel 01/27/20 Range/Units 10:53 Calcium 9.2 (8.4-10.2) mg/dL Albumin 4.4 (3.5-5.0) g/dL Pituitary panel 01/27/20 Range/Units 10:53 Sodium 138 (137-145) mmol/L Potassium 4.0 (3.5-5.1) mmol/L Chloride 104 (98-107) mmol/L Carbon Dioxide 24 (22-30) mmol/L BUN 8 L (9-20) mg/dL Creatinine 0.71 (0.66-1.25) mg/dL Glucose 111 H (74-99) mg/dL Calcium 9.2 (8.4-10.2) mg/dL Adrenal panel 01/27/20 Range/Units 10:53 Sodium 138 (137-145) mmol/L Potassium 4.0 (3.5-5.1) mmol/L Chloride 104 (98-107) mmol/L Carbon Dioxide 24 (22-30) mmol/L BUN 8 L (9-20) mg/dL Creatinine 0.71 (0.66-1.25) mg/dL Glucose 111 H (74-99) mg/dL Calcium 9.2 (8.4-10.2) mg/dL Total Bilirubin 2.3 H (0.2-1.3) mg/dL AST 28 (17-59) U/L ALT 30 (4-49) U/L Alkaline Phosphatase 94 (38-126) U/L Total Protein 7.5 (6.3-8.2) g/dL Albumin 4.4 (3.5-5.0) g/dL
[2020-01-27] MEDS ORDERED: ONDANSETRON 4 MG/2 ML VIAL ONE (16:09)
[2020-01-27] MEDS ORDERED: HEPARIN SODIUM,PORCINE 5,000 UNIT/ML 1 ML VIAL ONE (16:09)
[2020-01-27] MEDS: HEPARIN SODIUM,PORCINE 5,000 UNIT/ML 1 ML VIAL SQ SCH (16:16)
[2020-01-27] MEDS ORDERED: DEXAMETHASONE SOD PHOSPHATE 10 MG/ML 1 ML VIAL IV ONE (16:16)
[2020-01-27] MEDS ORDERED: GLYCOPYRROLATE 0.2 MG/ML 2 ML VIAL ONE (16:21)
[2020-01-27] MEDS ORDERED: HYDROmorphone (PF) 1 MG/ML ONE (16:21)
[2020-01-27] MEDS ORDERED: PROPOFOL 10 MG/ML 20 ML VIAL IV ONE (16:21)
[2020-01-27] MEDS ORDERED: ROCURONIUM 10 MG/ML (5 ML VIAL) IV ONE (16:21)
[2020-01-27] MEDS ORDERED: fentaNYL (PF) 50 MCG/ML 2 ML AMP ONE (16:21)
[2020-01-27] MEDS ORDERED: SUCCINYLCHOLINE CHLORIDE 100 MG/5 ML SYR IV ONE (16:21)
[2020-01-27] MEDS ORDERED: LIDOCAINE 1% INJ 10MG/ML (20 ML MDV) ONE (16:21)
[2020-01-27] MEDS ORDERED: MIDAZOLAM 2 MG/2 ML VIAL ONE (16:21)
[2020-01-27] MEDS ORDERED: NEOSTIGMINE 1 MG/ML 10 ML VIAL ONE (16:21)
[2020-01-27] MEDS ORDERED: LACTATED RINGERS 1,000 ML IV ONE ×2 (16:22→17:06)
--- NOTE | 2020-01-27 17:56 | P.OP ---
Date of Procedure: 01/27/20 Preoperative Diagnosis: Acute perforated appendicitis with abscess Postoperative Diagnosis: Acute perforated appendicitis with abscess Meckel's diverticulum Procedure(s) Performed: Diagnostic laparoscopy Right colectomy Excision of Meckel's diverticulum Anesthesia: MARBIN Surgeon: Juancarlos Foote Estimated Blood Loss (ml): 100 Pathology: other (Right colon, small bowel containing Meckel's diverticulum) Condition: stable Disposition: PACU Description of Procedure: The patient's placed the operative table in supine position. He received general anesthesia. His abdomen was prepped and draped usual fashion. A supraumbilical skin incision was made and then using a [place] clamp the umbilicus was grasped and then the Veress needle was placed in the pleural cavity. Position of the Veress needle was confirmed with positive drop test. The abdomen was insufflated after adequate insufflation the 5 mm trochars placed. Cavity. And then the laparoscope was placed. Cavity. There were significant adhesions in the right lower quadrant. This time is to convert procedure pro cedure. The trochars withdrawn. A midline skin incision was made and then using cautery and subcu tissue divided and then the fascia of the abdominal wall was divided. The Bookwalter wound. The patient had significant adhesions in the right lower quadrant. A abscess cavity was entered. There was intense inflammatory reaction around the cecum and terminal ileum. At this point decided to mobilize the right colon. The mesentery is very inflamed. There was some bleeding from the mesentery and this was ligated with 3-0 GI silk sutures. At this point the descending colon was transected with a GI stapler and then the terminal ileum was transected with a GI stapler. Using the Enseal device the mesentery the bowel was divided. The small bowel was examined. The peritoneum Meckel's diverticulum approximately 3 inches from the distal small bowel staple line at this point the small bowel was transected proximal to the Meckel's diverticulum and then using incentive device the mesentery the bowel was divided and then the Meckel's diverticulum sent to pathology. A [id number] functional end-to-end staple anastomosis was then created between the terminal ileum and the ascending colon using the MERCEDES and TA stapler. A 3-0 GI silk sutures as a crotch stitch. The abdomen was irrigated there is no bleeding seen. The fascia was closed with looped #1 PDS suture. A GWEN drain placed in the right lower quadrant brought through separate stab incision. The skin was closed loosely with kemi several Telfa teresa placed a wound. Patient received sterile dressing he tolerated procedure well and sent to recovery room stable condition.
[2020-01-27] MEDS: HYDROmorphone 1 MG/ML 1 ML SYRINGE IVP ONE ×2 (18:15→18:22)
[2020-01-27] MEDS ORDERED: HYDROmorphone 1 MG/ML 1 ML SYRINGE IVP ONE ×2 (19:10→19:15)
[2020-01-27] MEDS: HYDROmorphone 1 MG/ML 1 ML SYRINGE IVP PRN (20:19)
--- NOTE | 2020-01-27 21:52 | P.CONS ---
History of Present Illness - Reason for Consult Consult date: 01/27/20 Medical management Requesting physician: Juancarlos Foote - Chief Complaint Abdominal pain - History of Present Illness Consultation: This is a 44-year-old patient of Dr. JENKINS. Chronic stable medical conditions include fatty liver, gout, glaucoma, obesity. Patient's rate is a was started on with increasing right lower quadrant abdominal pain. So D progress to get worse. Yesterday done with nausea and today had some vomiting. He presented to the ER. Computed tomography scan of the abdomen showed a possible abscess. Patient was taken to the operating room. Patient's ultrasound of significant adhesions in the right lower quadrant. Abscess cavity was noted. Around the cecum and the terminal ileum. Part of the abdominal ileum and ascending colon.- Resected. GWEN drain was placed. Review of systems: GEN.: Tired EYES: None HEENT: None NECK: None RESPIRATORY: None CARDIOVASCULAR: None GASTROINTESTINAL: [As above GENITOURINARY: None MUSCULOSKELETAL: None LYMPHATICS: None HEMATOLOGICAL: None PSYCHIATRY: None NEUROLOGICAL: None Past medical history to include: Gout, glaucoma, fatty liver Social history: Patient does smoke in the past. Does medical marijuana. Lives with his mother. Does epoxy floors Physical examination: VITAL SIGNS: 98.9, 83, 18, and 59/84, 97% on 2 L GENERAL: BMI 38.1, laying in bed, tired. EYES: Pupils equal. Conjunctiva normal. HEENT: External appearance of nose and ears normal, oral cavity grossly normal. NECK: JVD not raised; masses not palpable. HEART: First and second heart sounds are normal; no edema. LUNGS: Respiratory rate normal; clear to auscultation. ABDOMEN: Soft, tender, right lower quadrant GWEN drain, liver spleen not palpable, no masses palpable. PSYCH: Alert and oriented x3; mood and affect normal. NEUROLOGICAL: Cranial nerves grossly intact; no facial asymmetry, power and sensation grossly intact. LYMPHATICS: No lymph nodes palpable in the axilla and neck INVESTIGATIONS, reviewed in the clinical context: White count 13.3 hemoglobin 13.7 potassium 4.0 crit 0.71 Computed tomography scan of the abdomen pelvis-abscess and right lower quadrant, moderate fatty infiltration, nonobstructing left renal stone Assessment: -Right lower abdomen abscess could be from appendix resulting in resection of terminal small bowel and portion of the ascending colon, the GWEN drain -Obesity BMI 38.1 -Chronic gout -Nonalcoholic fatty liver disease -Nonobstructive left kidney stone Plan: Patient is on on IV Levaquin and Flagyl. We will add IV fluids. Subcu heparin for DVT prophylaxis. Switch to IV Flagyl. Has a GWEN drain. Thank you Dr. Foote Past Medical History Past Medical History: No Reported History Additional Past Medical History / Comment(s): hernia, gout, glaucoma, fatty liver History of Any Multi-Drug Resistant Organisms: None Reported Past Surgical History: Hernia Repair Additional Past Surgical History / Comment(s): colonoscopy, rubber band hemorrhoid ligation, broken collar bone as child Past Anesthesia/Blood Transfusion Reactions: No Reported Reaction Past Psychological History: No Psychological Hx Reported Smoking Status: Former smoker Past Alcohol Use History: None Reported Past Drug Use History: Marijuana Additional Drug Use History / Comment(s): has medical card - Past Family History Mother Family Medical History: Cancer Additional Family Medical History / Comment(s): "female cancer" Father Additional Family Medical History / Comment(s): heroin o/d Medications and Allergies Home Medications Medication Instructions Recorded Confirmed Type Cholecalciferol (Vitamin D3) 2,000 unit PO DAILY 03/05/18 01/27/20 History [Vitamin D3] Febuxostat [Uloric] 40 mg PO DAILY 03/05/18 01/27/20 History Travoprost [Travatan Z 0.004%] 1 drop BOTH EYES HS 03/05/18 01/27/20 History Allergies Allergy/AdvReac Type Severity Reaction Status Date / Time Penicillins Allergy Unknown Unknown Verified 01/27/20 16:03 Childhood Physical Exam Vitals: Vital Signs Temp Pulse Pulse Pulse Resp BP BP 01/27/20 20:25 85 20 159/84 01/27/20 19:55 98.9 F 83 18 180/94 01/27/20 19:15 88 16 168/87 01/27/20 19:00 90 16 169/90 01/27/20 18:45 81 16 176/83 01/27/20 18:30 80 16 170/83 01/27/20 18:23 91 20 170/91 01/27/20 18:08 85 20 194/96 01/27/20 17:53 97.9 F 82 22 192/103 01/27/20 16:23 98.1 F 90 18 01/27/20 15:00 90 20 131/80 01/27/20 12:33 98.7 F 87 14 146/90 01/27/20 12:27 83 18 138/90 01/27/20 10:38 98.6 F 84 19 150/97 BP Pulse Ox 01/27/20 20:25 97 01/27/20 19:55 97 01/27/20 19:15 93 L 01/27/20 19:00 96 01/27/20 18:45 93 L 01/27/20 18:30 93 L 01/27/20 18:23 97 01/27/20 18:08 98 01/27/20 17:53 94 L 01/27/20 16:23 154/94 98 01/27/20 15:00 96 01/27/20 12:33 96 01/27/20 12:27 98 01/27/20 10:38 99 Intake and Output 01/27/20 01/27/20 01/27/20 06:59 14:59 22:59 Intake Total 1400 Output Total 270 Balance 1130 Intake: IV 1400 Output: Drainage 70 Right Abdomen 70 Estimated Blood Loss 200 Other: Weight 127.459 kg 127.459 kg Results CBC & Chem 7: 01/27/20 10:53 01/27/20 10:53 Labs: Abnormal Lab Results - Last 24 Hours (Table) 01/27/20 01/27/20 01/27/20 Range/Units 10:53 10:53 10:57 WBC 13.3 H (3.8-10.6) k/uL Neutrophils # 9.9 H (1.3-7.7) k/uL BUN 8 L (9-20) mg/dL Glucose 111 H (74-99) mg/dL Total Bilirubin 2.3 H (0.2-1.3) mg/dL Urine Ketones 1+ H (Negative)
[2020-01-28] MEDS: HEPARIN SODIUM,PORCINE 5,000 UNIT/ML 1 ML VIAL SQ SCH ×4 (00:08→23:27)
[2020-01-28] MEDS: HYDROmorphone 1 MG/ML 1 ML SYRINGE IVP PRN ×6 (00:08→20:35)
[2020-01-28] MEDS: ONDANSETRON 4 MG/2 ML VIAL IVP PRN ×2 (02:49→16:39)
[2020-01-28] MEDS ORDERED: LEVOFLOXACIN 500MG-D5W PMX 500 MG in DEXTROSE/WATER 1 100ML.BAG IVPB SCH (08:00)
[2020-01-28] MEDS: PANTOPRAZOLE 40 MG/10 ML VIAL IVP SCH (08:28)
[2020-01-28] MEDS: CEFEPIME 2 GM in SODIUM CHLORIDE 0.9% 100 ML IVPB SCH ×2 (08:29→20:35)
[2020-01-28 09:05] LABS: Basophils % (A) 0 %; Eosinophils % (A) 0 %; HGB 14.4 gm/dL (13.0-17.5); Lymphocytes # (A) 0.9 k/uL (1.0-4.8); Lymphocytes % (A) 5 %; MCH 29.4 pg (25.0-35.0); MCHC 32.8 g/dL (31.0-37.0); MCV 89.7 fL (80.0-100.0); Mean Platelet Volume 7.5; Monocytes # (A) 1.1 k/uL (0-1.0); Monocytes % (A) 7 %; Neutrophils # (A) 14.8 k/uL (1.3-7.7); Neutrophils % (A) 87 %; Platelet Count 309 k/uL (150-450); RDW 13.2 % (11.5-15.5); WBC 17.1 k/uL (3.8-10.6)
[2020-01-28] MEDS: metroNIDAZOLE 500 MG TAB PO SCH ×3 (10:35→23:27)
--- NOTE | 2020-01-28 14:12 | P.PN ---
Subjective Progress Note Date: 01/28/20 CHIEF COMPLAINT: Acute appendicitis with ruptured appendix HISTORY OF PRESENT ILLNESS: Patient is postop day #1 right colectomy and excision of Meckel's diverticulum for acute perforated appendicitis with abscess. Patient reports that his abdominal pain is controlled. He denies any nausea or vomiting. He is tolerating ice chips. He is having some burping. Denies any flatness or bowel movement. White count has gone up from 13.3-17.1. Cefepime started by infectious disease. Remains afebrile. PHYSICAL EXAM: VITAL SIGNS: Reviewed. GENERAL: Well-developed in no acute distress. HEENT: No sclera icterus. Extraocular movements grossly intact. Moist buccal mucosa. Head is atraumatic, normocephalic. ABDOMEN: Soft. Nondistended. Mild tenderness with palpation. Incision along midline. Dressing has some mild bloody drainage. Patient has GWEN tube with serosanguineous fluid NEUROLOGIC: Alert and oriented. Cranial nerves II through XII grossly intact. ASSESSMENT: 1. Acute perforated appendicitis with abscess. Postop day #1 right colectomy and excision of Meckel's diverticulum PLAN: Continue antibiotics per infectious disease Continue ice chips Continue pain medications for pain control Continue GI and DVT prophylaxis Physician Group Exercise Instructor note has been reviewed by physician. Signing provider agrees with the documented findings, assessment, and plan of care. Objective - Vital Signs Vital signs: Vital Signs Temp 97.6 F 01/28/20 08:04 Pulse 70 01/28/20 08:04 Resp 16 01/28/20 08:04 BP 164/85 01/28/20 08:04 Pulse Ox 94 L 01/28/20 01:13 Intake & Output 01/27/20 01/28/20 01/28/20 18:59 06:59 18:59 Intake Total 1400 1160 Output Total 130 250 20 Balance 1270 910 -20 Weight 127.459 kg 127.459 kg Intake: IV 1400 Intake, IV Titration 1160 Amount Sodium Chloride 0.9% 1, 1160 000 ml @ 100 mls/hr IV . Q10H [facility] Rx#:[id number] Output: Drainage 180 20 Right Abdomen 180 20 Estimated Blood Loss 130 70 Other: Voiding Method Urinal # Voids 2 - Labs CBC & Chem 7: 01/28/20 08:12 01/27/20 10:53 Labs: Abnormal Lab Results - Last 24 Hours (Table) 01/28/20 Range/Units 08:12 WBC 17.1 H (3.8-10.6) k/uL Neutrophils # 14.8 H (1.3-7.7) k/uL Lymphocytes # 0.9 L (1.0-4.8) k/uL Monocytes # 1.1 H (0-1.0) k/uL
--- NOTE | 2020-01-28 22:34 | P.PN ---
Progress Note - Text Progress Note Date: 01/28/20 - Chief Complaint Abdominal pain - History of Present Illness Consultation: This is a 44-year-old patient of Dr. JENKINS. Chronic stable medical conditions include fatty liver, gout, glaucoma, obesity. Patient's rate is a was started on with increasing right lower quadrant abdominal pain. So D progress to get worse. Yesterday done with nausea and today had some vomiting. He presented to the ER. Computed tomography scan of the abdomen showed a possible abscess. Patient was taken to the operating room. Patient's ultrasound of significant adhesions in the right lower quadrant. Abscess cavity was noted. Around the cecum and the terminal ileum. Part of the abdominal ileum and ascending colon.- Resected. GWEN drain was placed. Today-has been up to the bathroom. Some flatus. No bowel movement. No nausea vomiting. On ice chips. GWEN drain in place. Some abdominal pain. Review of systems: Was done for constitutional, cardiovascular, GI, pulmonary. relevant finding as above Active Medications Hydrocodone Bitart/Acetaminophen ([place] 5-325) 1 each PO Q4HR PRN PRN Reason: Pain Heparin Sodium (Porcine) (Heparin) 5,000 unit SQ Q8HR [facility] Last Admin: 01/28/20 16:24 Dose: 5,000 unit Documented by: Hydromorphone HCl (Dilaudid) 0.5 mg IVP Q3HR PRN PRN Reason: Moderate Pain Last Admin: 01/27/20 12:26 Dose: 0.5 mg Documented by: Hydromorphone HCl (Dilaudid) 1 mg IVP Q4HR PRN PRN Reason: Pain Last Admin: 01/28/20 20:35 Dose: 1 mg Documented by: Cefepime HCl 2 gm/ Sodium (Chloride) 100 mls @ 25 mls/hr IVPB Q12HR [facility] Last Admin: 01/28/20 20:35 Dose: 25 mls/hr Documented by: Metronidazole (Flagyl) 500 mg PO TID [facility] Last Admin: 01/28/20 16:24 Dose: 500 mg Documented by: Naloxone HCl (Narcan) 0.2 mg IV Q2M PRN PRN Reason: Opioid Reversal Ondansetron HCl (Zofran) 4 mg IVP Q8HR PRN PRN Reason: Nausea And Vomiting Last Admin: 01/28/20 16:39 Dose: 4 mg Documented by: Pantoprazole Sodium (Protonix) 40 mg IVP DAILY [facility] Last Admin: 01/28/20 08:28 Dose: 40 mg Documented by: Physical examination: VITAL SIGNS: 97.6, 70, 16, 1 6077, 93% on room air GENERAL: Propped up in bed, awake EYES: Pupils equal. Conjunctiva normal. HEENT: External appearance of nose and ears normal, oral cavity grossly normal. NECK: JVD not raised; masses not palpable. HEART: First and second heart sounds are normal; no edema. LUNGS: Respiratory rate normal; clear to auscultation. ABDOMEN: Soft, tender, right lower quadrant GWEN drain, liver spleen not palpable, no masses palpable. PSYCH: Alert and oriented x3; mood and affect normal. INVESTIGATIONS, reviewed in the clinical context: White count 17.1 hemoglobin 14.4 Previous testing White count 13.3 hemoglobin 13.7 potassium 4.0 crit 0.71 Computed tomography scan of the abdomen pelvis-abscess and right lower quadrant, moderate fatty infiltration, nonobstructing left renal stone Assessment: -Right lower abdomen abscess could be from appendix resulting in resection of terminal small bowel and portion of the ascending colon,-GWEN drain -Obesity BMI 38.1 -Chronic gout -Nonalcoholic fatty liver disease -Nonobstructive left kidney stone Plan: Patient is on on IV cefepime and Flagyl. GWEN drain. Remains nothing by mouth except for ice chips. Encouraged to be out of bed. Ambulate. Thank you Dr. Foote
--- NOTE | 2020-01-28 23:24 | P.CONS ---
History of Present Illness - Reason for Consult Consult date: 01/28/20 Perforated appendicitis Requesting physician: Juancarlos Foote - Chief Complaint Right lower quadrant abdominal pain x few days - History of Present Illness Patient is a 44-year-old male presenting to the ER at [facility] yesterday morning. With the chief complains of right lower quadrant abdominal pain, the patient symptom has been going on for about 2 days before presentation to the hospital patient has been mostly in the right lower quadrant area patient described the pain to be more of a sharp and at times colicky with intensity of 7- 8 out of 10 and no radiation patient did have nausea and vomiting But no diarrhea or constipation did have some chills but denies high-grade fever with this and the patient was evaluated by the physician on the Route via the patient has been afebrile patient did have elevated white count of 13,000, patient did have CT of abdominal pelvis and it shows abnormality in the right lower quadrant concerning for appendicitis patient was taken to the OR he was noticed to have a perforated appendicitis status post appendectomy patient was started on Levaquin and Flagyl because of his penicillin ALLERGY this morning his white count was up to 70,000 infection disease was consulted for further management of antibiotic therapy Review of Systems Positive point has been mentioned in the HPI rest of the systems are negative Past Medical History Past Medical History: No Reported History Additional Past Medical History / Comment(s): hernia, gout, glaucoma, fatty liver History of Any Multi-Drug Resistant Organisms: None Reported Past Surgical History: Hernia Repair Additional Past Surgical History / Comment(s): colonoscopy, rubber band hemorrhoid ligation, broken collar bone as child Past Anesthesia/Blood Transfusion Reactions: No Reported Reaction Past Psychological History: No Psychological Hx Reported Smoking Status: Former smoker Past Alcohol Use History: None Reported Past Drug Use History: Marijuana Additional Drug Use History / Comment(s): has medical card - Past Family History Mother Family Medical History: Cancer Additional Family Medical History / Comment(s): "female cancer" Father Additional Family Medical History / Comment(s): heroin o/d Medications and Allergies Home Medications Medication Instructions Recorded Confirmed Type Cholecalciferol (Vitamin D3) 2,000 unit PO DAILY 03/05/18 01/27/20 History [Vitamin D3] Febuxostat [Uloric] 40 mg PO DAILY 03/05/18 01/27/20 History Travoprost [Travatan Z 0.004%] 1 drop BOTH EYES HS 03/05/18 01/27/20 History Allergies Allergy/AdvReac Type Severity Reaction Status Date / Time Penicillins Allergy Unknown Unknown Verified 01/27/20 16:03 Childhood Physical Exam Vitals: Vital Signs Temp Pulse Pulse Pulse Resp BP BP 01/28/20 08:04 97.6 F 70 16 164/85 01/28/20 03:39 18 01/28/20 01:13 97.4 F L 75 15 161/79 01/27/20 21:45 89 157/86 01/27/20 21:30 85 132/83 01/27/20 21:15 97 145/89 01/27/20 21:00 81 20 165/89 01/27/20 20:45 91 159/92 01/27/20 20:30 86 168/92 01/27/20 20:25 85 20 159/84 01/27/20 20:15 94 159/84 01/27/20 20:00 90 149/94 01/27/20 19:55 98.9 F 83 18 180/94 01/27/20 19:45 98.6 F 82 16 180/94 01/27/20 19:15 88 16 168/87 01/27/20 19:00 90 16 169/90 01/27/20 18:45 81 16 176/83 01/27/20 18:30 80 16 170/83 01/27/20 18:23 91 20 170/91 01/27/20 18:08 85 20 194/96 01/27/20 17:53 97.9 F 82 22 192/103 01/27/20 16:23 98.1 F 90 18 01/27/20 15:00 90 20 131/80 01/27/20 12:33 98.7 F 87 14 146/90 01/27/20 12:27 83 18 138/90 01/27/20 10:38 98.6 F 84 19 150/97 BP Pulse Ox 01/28/20 08:04 01/28/20 03:39 01/28/20 01:13 94 L 01/27/20 21:45 01/27/20 21:30 01/27/20 21:15 01/27/20 21:00 01/27/20 20:45 01/27/20 20:30 01/27/20 20:25 97 01/27/20 20:15 01/27/20 20:00 01/27/20 19:55 97 01/27/20 19:45 95 01/27/20 19:15 93 L 01/27/20 19:00 96 01/27/20 18:45 93 L 01/27/20 18:30 93 L 01/27/20 18:23 97 01/27/20 18:08 98 01/27/20 17:53 94 L 01/27/20 16:23 154/94 98 01/27/20 15:00 96 01/27/20 12:33 96 01/27/20 12:27 98 01/27/20 10:38 99 Intake and Output 01/27/20 01/28/20 01/28/20 22:59 06:59 14:59 Intake Total 1600 960 Output Total 310 70 Balance 1290 890 Intake: IV 1400 Intake, IV Titration 200 960 Amount Sodium Chloride 0.9% 1, 200 960 000 ml @ 100 mls/hr IV . Q10H [facility] Rx#:[id number] Output: Drainage 110 70 Right Abdomen 110 70 Estimated Blood Loss 200 Other: Voiding Method Urinal Urinal # Voids 1 2 Weight 127.459 kg GENERAL DESCRIPTION: Middle-aged male lying in bed, no distress. No tachypnea or accessory muscle of respiration use. HEENT: Shows Pallor , no scleral icterus. Oral mucous membrane is dry. No pharyngeal erythema or thrush NECK: Trachea central, no thyromegaly. LUNGS: Unlabored breathing. Clear to auscultation anteriorly. No wheeze or crackle. HEART: S1, S2, regular rate and rhythm. No loud murmur ABDOMEN: Soft, right lower quadrant tenderness , guarding or rigidity, no organomegaly EXTREMITIES: No edema of feet. SKIN: No rash, no masses palpable. NEUROLOGICAL: The patient is awake, alert, oriented x3, mood and affect normal. Results CBC & Chem 7: 01/28/20 08:12 01/27/20 10:53 Labs: Abnormal Lab Results - Last 24 Hours (Table) 01/27/20 01/27/20 01/27/20 Range/Units 10:53 10:53 10:57 WBC 13.3 H (3.8-10.6) k/uL Neutrophils # 9.9 H (1.3-7.7) k/uL BUN 8 L (9-20) mg/dL Glucose 111 H (74-99) mg/dL Total Bilirubin 2.3 H (0.2-1.3) mg/dL Urine Ketones 1+ H (Negative) Assessment and Plan Assessment: 1- patient admitted to hospital with right lower quadrant abdominal pain did have elevated white count diagnosed with acute perforated appendicitis status post appendectomy when he to call for the enteric gram-negative both aerobes and anaerobes to the likely pathogen 2- penicillin ALLERGY that lower limit the number of antibiotics safe t0 use however ALLERGY has been childhood and no clear history of anaphylaxis (1) Penicillin allergy Current Visit: Yes Status: Acute Code(s): Z88.0 - ALLERGY STATUS TO PENICILLIN SNOMED Code(s): 46757811 (2) Acute appendicitis with appendiceal abscess Current Visit: Yes Status: Acute Code(s): K35.33 - ACUTE APPENDICITIS WITH PERF AND LOC PERITONITIS, WITH ABSCS SNOMED Code(s): 387562300 Plan: 1- discontinue Levaquin 2- start the patient cefepime 2 g every 12 hours and continue with the Flagyl We will follow on clinical condition and cultures to further adjust medication if needed Thank you for this consultation will follow this patient with you Time with Patient: Greater than 30
[2020-01-29] MEDS: HYDROmorphone 1 MG/ML 1 ML SYRINGE IVP PRN ×4 (01:06→19:43)
[2020-01-29 08:05] LABS: Basophils % (A) 0 %; Eosinophils % (A) 0 %; HCT 42.8 % (39.0-53.0); Lymphocytes # (A) 1.4 k/uL (1.0-4.8); Lymphocytes % (A) 11 %; MCH 29.3 pg (25.0-35.0); MCHC 32.7 g/dL (31.0-37.0); MCV 89.6 fL (80.0-100.0); Mean Platelet Volume 7.2; Monocytes % (A) 8 %; Neutrophils # (A) 10.3 k/uL (1.3-7.7); Neutrophils % (A) 79 %; Platelet Count 296 k/uL (150-450); RBC 4.78 m/uL (4.30-5.90); RDW 13.2 % (11.5-15.5); WBC 13.1 k/uL (3.8-10.6)
[2020-01-29] MEDS: PANTOPRAZOLE 40 MG/10 ML VIAL IVP SCH (08:28)
[2020-01-29] MEDS: CEFEPIME 2 GM in SODIUM CHLORIDE 0.9% 100 ML IVPB SCH ×2 (08:28→20:41)
[2020-01-29] MEDS: HEPARIN SODIUM,PORCINE 5,000 UNIT/ML 1 ML VIAL SQ SCH ×2 (08:28→16:32)
[2020-01-29] MEDS: ONDANSETRON 4 MG/2 ML VIAL IVP PRN (08:28)
[2020-01-29] MEDS: metroNIDAZOLE 500 MG TAB PO SCH ×3 (08:28→20:41)
--- NOTE | 2020-01-29 11:38 | P.PN ---
Subjective Progress Note Date: 01/29/20 CHIEF COMPLAINT: Acute appendicitis with ruptured appendix HISTORY OF PRESENT ILLNESS: Patient is postop day #2 right colectomy and excision of Meckel's diverticulum for acute perforated appendicitis with abscess. Patient reports that his abdominal pain is controlled. He had one episode of vomiting this morning. He is tolerating ice chips. Denies any flatne ss or bowel movement. WBC is down from 17.1-13.1 Cefepime started by infectious disease. Remains afebrile. PHYSICAL EXAM: VITAL SIGNS: Reviewed. GENERAL: Well-developed in no acute distress. HEENT: No sclera icterus. Extraocular movements grossly intact. Moist buccal mucosa. Head is atraumatic, normocephalic. ABDOMEN: Soft. Nondistended. Diffuse Mild tenderness with palpation. Incision along midline. Dressing has some mild bloody drainage. Patient has GWEN tube with serosanguineous fluid NEUROLOGIC: Alert and oriented. Cranial nerves II through XII grossly intact. ASSESSMENT: 1. Acute perforated appendicitis with abscess. Postop day #2 right colectomy and excision of Meckel's diverticulum PLAN: Continue antibiotics per infectious disease Continue ice chips Continue pain medications for pain control Continue GI and DVT prophylaxis Physician [employer] Consultant note has been reviewed by physician. Signing provider agrees with the documented findings, assessment, and plan of care. Objective - Vital Signs Vital signs: Vital Signs Temp 99.0 F 01/29/20 07:09 Pulse 96 01/29/20 08:28 Resp 18 01/29/20 08:28 BP 158/88 01/29/20 07:09 Pulse Ox 96 01/29/20 07:09 Intake & Output 01/28/20 01/29/20 01/29/20 18:59 06:59 18:59 Intake Total 100 Output Total 130 105 40 Balance -130 -5 -40 Intake: Intake, IV Titration 100 Amount Cefepime 2 gm In Sodium 100 Chloride 0.9% 100 ml @ 25 mls/hr IVPB Q12HR [facility] Rx #:[id number] Output: Drainage 130 105 40 Right Abdomen 130 105 40 Other: Voiding Method Urinal # Voids 3 1 - Labs CBC & Chem 7: 01/29/20 07:42 01/27/20 10:53 Labs: Abnormal Lab Results - Last 24 Hours (Table) 01/29/20 Range/Units 07:42 WBC 13.1 H (3.8-10.6) k/uL Neutrophils # 10.3 H (1.3-7.7) k/uL Microbiology - Last 24 Hours (Table) 01/27/20 12:24 Blood Culture - Preliminary Blood No Growth after 24 hours
--- NOTE | 2020-01-29 13:41 | XR ---
EXAMINATION TYPE: XR abdomen 2V DATE OF EXAM: 01/29/2020 12:52 PM CLINICAL HISTORY: Postoperative ileus. Status post appendectomy. Nausea and vomiting. TECHNIQUE: Supine and upright images of the abdomen and pelvis were obtained COMPARISON: CT abdomen pelvis 01/27/2020. FINDINGS: Right para midline surgical clips. Surgical drain overlies the right lower quadrant. There are gaseous distended small bowel loops, with dilatation measuring up to 5.7 cm. There is gaseous dis tention of the nondilated colon to the level of the descending colon. There is no visceromegaly, pneu moperitoneum, or abnormal calcification appreciated. The lung bases are clear. The osseous structures are intact. IMPRESSION: Diffusely dilated small bowel loops, and gaseous distention to the level of the descending colon. Fin dings likely represent postoperative ileus.
--- NOTE | 2020-01-29 16:32 | PN ---
PROGRESS NOTE DATE OF SERVICE: 01/29/2020 REASON FOR FOLLOWUP: Secondary peritonitis from perforated appendicitis. INTERVAL HISTORY: The patient is currently afebrile, has been breathing comfortably. The patient denies having any chest pain or shortness of breath or cough. Overall abdominal discomfort is slightly decreased. No nausea, no vomiting. PHYSICAL EXAMINATION: Blood pressure 162/100 with a pulse of 107, temperature 98.3. He is 93% on room air. General description is a middle-aged male lying in bed in no distress. RESPIRATORY SYSTEM: Unlabored breathing. Clear to auscultation anteriorly. HEART: S1, S2. Regular rate and rhythm. ABDOMEN: Soft. Mildly distended. No guarding or rigidity. LABS: Hemoglobin is 14, white count 13.1. Blood culture has been negative. DIAGNOSTIC IMPRESSION AND PLAN: Patient with perforated appendicitis, status post appendectomy. The patient is currently covered with the cefepime and Flagyl; to continue while monitoring his clinical course closely. Continue supportive care. MMODL / IJN: [id number] /
--- NOTE | 2020-01-29 19:58 | P.PN ---
Progress Note - Text Progress Note Date: 01/29/20 - Chief Complaint Abdominal pain - History of Present Illness Consultation: This is a 44-year-old patient of Dr. JENKINS. Chronic stable medical conditions include fatty liver, gout, glaucoma, obesity. Patient's rate is a was started on with increasing right lower quadrant abdominal pain. So D progress to get worse. Yesterday done with nausea and today had some vomiting. He presented to the ER. Computed tomography scan of the abdomen showed a possible abscess. Patient was taken to the operating room. Patient's ultrasound of significant adhesions in the right lower quadrant. Abscess cavity was noted. Around the cecum and the terminal ileum. Part of the abdominal ileum and ascending colon.- Resected. GWEN drain was placed. Today-patient vomited this morning. Abdomen distended. No bowel movement or flatus. Having some pain. Up in bed. Review of systems: Was done for constitutional, cardiovascular, GI, pulmonary. relevant finding as above Active Medications Hydrocodone Bitart/Acetaminophen ([place] 5-325) 1 each PO Q4HR PRN PRN Reason: Pain Heparin Sodium (Porcine) (Heparin) 5,000 unit SQ Q8HR [facility] Last Admin: 01/29/20 16:32 Dose: 5,000 unit Documented by: Hydromorphone HCl (Dilaudid) 0.5 mg IVP Q3HR PRN PRN Reason: Moderate Pain Last Admin: 01/27/20 12:26 Dose: 0.5 mg Documented by: Hydromorphone HCl (Dilaudid) 1 mg IVP Q4HR PRN PRN Reason: Pain Last Admin: 01/29/20 19:43 Dose: 1 mg Documented by: Cefepime HCl 2 gm/ Sodium (Chloride) 100 mls @ 25 mls/hr IVPB Q12HR [facility] Last Admin: 01/29/20 08:28 Dose: 25 mls/hr Documented by: Metronidazole (Flagyl) 500 mg PO TID [facility] Last Admin: 01/29/20 16:32 Dose: 500 mg Documented by: Naloxone HCl (Narcan) 0.2 mg IV Q2M PRN PRN Reason: Opioid Reversal Ondansetron HCl (Zofran) 4 mg IVP Q8HR PRN PRN Reason: Nausea And Vomiting Last Admin: 01/29/20 08:28 Dose: 4 mg Documented by: Pantoprazole Sodium (Protonix) 40 mg IVP DAILY [facility] Last Admin: 01/29/20 08:28 Dose: 40 mg Documented by: Physical examination: VITAL SIGNS: 99, 96, 18, 158/88, 96% room air GENERAL: Propped up in bed, awake EYES: Pupils equal. Conjunctiva normal. HEENT: External appearance of nose and ears normal, oral cavity grossly normal. NECK: JVD not raised; masses not palpable. HEART: First and second heart sounds are normal; no edema. LUNGS: Respiratory rate normal; clear to auscultation. ABDOMEN: Soft, distended, bowel sounds absent tender, right lower quadrant GWEN drain, liver spleen not palpable, no masses palpable. PSYCH: Alert and oriented x3; mood and affect normal. INVESTIGATIONS, reviewed in the clinical context: White count 13.1 hemoglobin 14 Abdominal x-ray film personally reviewed by me shows small bowel ileus Previous testing White count 13.3 hemoglobin 13.7 potassium 4.0 crit 0.71 Computed tomography scan of the abdomen pelvis-abscess and right lower quadrant, moderate fatty infiltration, nonobstructing left renal stone Assessment: -Right lower abdomen abscess could be from appendix resulting in resection of terminal small bowel and portion of the ascending colon,-GWEN drain -Obesity BMI 38.1 -Chronic gout -Nonalcoholic fatty liver disease -Nonobstructive left kidney stone -Postop small bowel ileus symptomatic Plan: on IV cefepime and Flagyl. GWEN drain. Remains on ice chills. Spoke to the nurse to see if okay with Dr. Foote to place NG tube to suction. Repeat labs in the morning.. Thank you Dr. Foote
[2020-01-29] MEDS: FAMOTIDINE 20 MG/2 ML VIAL IV SCH (20:43)
[2020-01-30] MEDS: HYDROmorphone 1 MG/ML 1 ML SYRINGE IVP PRN ×2 (00:08→04:16)
[2020-01-30] MEDS: HEPARIN SODIUM,PORCINE 5,000 UNIT/ML 1 ML VIAL SQ SCH ×4 (00:08→23:43)
[2020-01-30 06:52] LABS: Basophils % (A) 0 %; Eosinophils % (A) 0 %; HCT 43.3 % (39.0-53.0); HGB 14.1 gm/dL (13.0-17.5); Lymphocytes # (A) 1.2 k/uL (1.0-4.8); Lymphocytes % (A) 9 %; MCH 29.1 pg (25.0-35.0); MCHC 32.5 g/dL (31.0-37.0); MCV 89.8 fL (80.0-100.0); Mean Platelet Volume 7.3; Monocytes % (A) 8 %; Neutrophils % (A) 81 %; Platelet Count 317 k/uL (150-450); RBC 4.82 m/uL (4.30-5.90); RDW 13.2 % (11.5-15.5); WBC 12.4 k/uL (3.8-10.6)
[2020-01-30 07:21] LABS: African American GFR (CKD) >90 (>60 ml/min/1.73 sqM); Anion Gap 8 mmol/L; Blood Urea Nitrogen 14 mg/dL (9-20); Calcium 8.7 mg/dL (8.4-10.2); Carbon Dioxide 28 mmol/L (22-30); Chloride 101 mmol/L (98-107); Glucose 103 mg/dL (74-99); Magnesium 2.1 mg/dL (1.6-2.3); Non-African American GFR(CKD) >90 (>60 ml/min/1.73 sqM); Potassium 4.2 mmol/L (3.5-5.1); Sodium 137 mmol/L (137-145)
[2020-01-30] MEDS: metroNIDAZOLE 500 MG TAB PO SCH ×3 (08:04→20:27)
[2020-01-30] MEDS: CEFEPIME 2 GM in SODIUM CHLORIDE 0.9% 100 ML IVPB SCH ×2 (08:04→20:27)
[2020-01-30] MEDS: FAMOTIDINE 20 MG/2 ML VIAL IV SCH ×2 (08:04→20:27)
--- NOTE | 2020-01-30 12:30 | P.PN ---
Subjective Progress Note Date: 01/30/20 CHIEF COMPLAINT: Acute appendicitis with ruptured appendix HISTORY OF PRESENT ILLNESS: Patient is postop day #3 right colectomy and excision of Meckel's diverticulum for acute perforated appendicitis with abscess. Patient reports that his abdominal pain is controlled. patient reports 4 episodes of vomiting yesterday.But vomiting did resolve after he started passing gas. no bowel movement yet. He is afebrile. white count has gone down from 13.1-12.4 PHYSICAL EXAM: VITAL SIGNS: Reviewed. GENERAL: Well-developed in no acute distress. HEENT: No sclera icterus. Extraocular movements grossly intact. Moist buccal mucosa. Head is atraumatic, normocephalic. ABDOMEN: Soft. Nondistended. Diffuse Mild tenderness with palpation. In cision along midline. Dressing has some mild bloody drainage. Patient has GWEN tube with serosanguineous fluid NEUROLOGIC: Alert and oriented. Cranial nerves II through XII grossly intact. ASSESSMENT: 1. Acute perforated appendicitis with abscess. Postop day #3 right colectomy and excision of Meckel's diverticulum PLAN: Continue antibiotics per infectious disease advance diet to clears with sips Continue pain medications for pain control Encouraged patient to use incentive spirometer Encourage patient to ambulate Continue GI and DVT prophylaxis Physician [employer] note has been reviewed by physician. Signing provider agrees with the documented findings, assessment, and plan of care. Objective - Vital Signs Vital signs: Vital Signs Temp 97.5 F L 01/30/20 07:26 Pulse 93 01/30/20 07:26 Resp 18 01/30/20 07:26 BP 138/82 01/30/20 07:26 Pulse Ox 95 01/30/20 07:26 Intake & Output 01/29/20 01/30/20 01/30/20 18:59 06:59 18:59 Intake Total 100 Output Total 185 80 50 Balance -185 -80 50 Intake: Oral 100 Output: Drainage 185 80 50 Right Abdomen 185 80 50 Other: Voiding Method Urinal Urinal # Voids 1 1 - Labs CBC & Chem 7: 01/30/20 06:15 01/30/20 06:15 Labs: Abnormal Lab Results - Last 24 Hours (Table) 01/30/20 01/30/20 Range/Units 06:15 06:15 WBC 12.4 H (3.8-10.6) k/uL Neutrophils # 10.0 H (1.3-7.7) k/uL Glucose 103 H (74-99) mg/dL Microbiology - Last 24 Hours (Table) 01/27/20 12:24 Blood Culture - Preliminary Blood No Growth after 48 hours
[2020-01-30 13:42] VITALS: BMI 38.1
--- NOTE | 2020-01-30 13:54 | PN ---
PROGRESS NOTE DATE OF SERVICE: 01/30/2020 REASON FOR FOLLOWUP: Secondary peritonitis from perforated appendicitis. INTERVAL HISTORY: The patient is currently afebrile, has been breathing comfortably. Denies having any chest pain. No shortness of breath or cough. No nausea, no vomiting, no abdominal pain or diarrhea. Has been tolerating his soft diet. PHYSICAL EXAMINATION: Blood pressure 132/82 with a pulse of 93, temperature 97.5. He is 95% on room air. General description is a middle-aged male, lying in bed in no distress. RESPIRATORY SYSTEM: Unlabored breathing, clear to auscultation anteriorly. HEART: S1, S2. Regular rate and rhythm. ABDOMEN: No guarding, no rigidity. LABS: Hemoglobin 14.8, white count 12.4, creatinine 0.75. Blood culture negative. DIAGNOSTIC IMPRESSION AND PLAN: Patient with secondary peritonitis from perforated appendicitis, status post appendectomy. The patient is currently on cefepime and Flagyl to continue as the patient continued to improved and white count normalized. Hopefully, finish therapy with oral Ceftin on a may consider IV. Will monitor clinical course closely. Continue supportive care. MMODL / IJN: [id number] /
[2020-01-30] MEDS: HYDROcodone/APAP 5-325MG 1 EACH TAB PO PRN ×2 (19:46→23:45)
--- NOTE | 2020-01-30 22:54 | P.PN ---
Progress Note - Text Progress Note Date: 01/30/20 - Chief Complaint Abdominal pain Consultation: This is a 44-year-old patient of Dr. JENKINS. Chronic stable medical conditions include fatty liver, gout, glaucoma, obesity. Patient's rate is a was started on with increasing right lower quadrant abdominal pain. So D progress to get worse. Yesterday done with nausea and today had some vomiting. He presented to the ER. Computed tomography scan of the abdomen showed a possible abscess. Patient was taken to the operating room. Patient's ultrasound of significant adhesions in the right lower quadrant. Abscess cavity was noted. Around the cecum and the terminal ileum. Part of the abdominal ileum and ascending colon.- Resected. GWEN drain was placed.follow-up x-ray did show ileus. Today-patient on clear liquids. Did pass some flatus today. Some decrease in distention. No nausea vomiting. Review of systems: Was done for constitutional, cardiovascular, GI, pulmonary. relevant finding as above Active Medications Hydrocodone Bitart/Acetaminophen ([place] 5-325) 1 each PO Q4HR PRN PRN Reason: Pain Last Admin: 01/30/20 19:46 Dose: 1 each Documented by: Famotidine (Pepcid) 20 mg IV Q12HR [facility] Last Admin: 01/30/20 20:27 Dose: 20 mg Documented by: Heparin Sodium (Porcine) (Heparin) 5,000 unit SQ Q8HR [facility] Last Admin: 01/30/20 17:25 Dose: 5,000 unit Documented by: Hydromorphone HCl (Dilaudid) 0.5 mg IVP Q3HR PRN PRN Reason: Moderate Pain Last Admin: 01/27/20 12:26 Dose: 0.5 mg Documented by: Hydromorphone HCl (Dilaudid) 1 mg IVP Q4HR PRN PRN Reason: Pain Last Admin: 01/30/20 04:16 Dose: 1 mg Documented by: Cefepime HCl 2 gm/ Sodium (Chloride) 100 mls @ 25 mls/hr IVPB Q12HR [facility] Last Admin: 01/30/20 20:27 Dose: 25 mls/hr Documented by: Metronidazole (Flagyl) 500 mg PO TID [facility] Last Admin: 01/30/20 20:27 Dose: 500 mg Documented by: Naloxone HCl (Narcan) 0.2 mg IV Q2M PRN PRN Reason: Opioid Reversal Ondansetron HCl (Zofran) 4 mg IVP Q8HR PRN PRN Reason: Nausea And Vomiting Last Admin: 01/29/20 08:28 Dose: 4 mg Documented by: Physical examination: VITAL SIGNS: 97.5, 93, 18, 138/82, 95% room air GENERAL: Propped up in bed, awake EYES: Pupils equal. Conjunctiva normal. HEENT: External appearance of nose and ears normal, oral cavity grossly normal. NECK: JVD not raised; masses not palpable. HEART: First and second heart sounds are normal; no edema. LUNGS: Respiratory rate normal; clear to auscultation. ABDOMEN: Soft, less distended, bowel sounds absent tender, right lower quadrant GWEN drain, liver spleen not palpable, no masses palpable. PSYCH: Alert and oriented x3; mood and affect normal. INVESTIGATIONS, reviewed in the clinical context: white count 12.4 hemoglobin 14.1 potassium 4.2 creatinine 0.75 Previous testing White count 13.3 hemoglobin 13.7 potassium 4.0 crit 0.71 Computed tomography scan of the abdomen pelvis-abscess and right lower quadrant, moderate fatty infiltration, nonobstructing left renal stone January 28-Abdominal x-ray film personally reviewed by me shows small bowel ileus Assessment: -Right lower abdomen abscess could be from appendix resulting in resection of terminal small bowel and portion of the ascending colon,-GWEN drain -Obesity BMI 38.1 -Chronic gout -Nonalcoholic fatty liver disease -Nonobstructive left kidney stone -Postop small bowel ileus symptomatic-some clinical improvement Plan: on IV cefepime and Flagyl. GWNE drain. started on clear liquids by surgery. Encouraged patient ambulate. We'll follow Thank you Dr. Foote
[2020-01-31] MEDS: HYDROcodone/APAP 5-325MG 1 EACH TAB PO PRN ×4 (04:58→21:35)
[2020-01-31 08:47] LABS: Basophils # (A) 0.1 k/uL (0-0.2); Basophils % (A) 1 %; Eosinophils # (A) 0.2 k/uL (0-0.7); Eosinophils % (A) 1 %; HCT 46.2 % (39.0-53.0); HGB 14.9 gm/dL (13.0-17.5); Lymphocytes # (A) 1.5 k/uL (1.0-4.8); Lymphocytes % (A) 14 %; MCH 28.7 pg (25.0-35.0); MCHC 32.2 g/dL (31.0-37.0); MCV 89.3 fL (80.0-100.0); Mean Platelet Volume 7.3; Monocytes # (A) 0.7 k/uL (0-1.0); Monocytes % (A) 6 %; Neutrophils # (A) 8.4 k/uL (1.3-7.7); Neutrophils % (A) 76 %; Platelet Count 383 k/uL (150-450); RBC 5.18 m/uL (4.30-5.90); RDW 13.1 % (11.5-15.5)
[2020-01-31] MEDS: CEFEPIME 2 GM in SODIUM CHLORIDE 0.9% 100 ML IVPB SCH ×2 (09:18→21:23)
[2020-01-31] MEDS: FAMOTIDINE 20 MG/2 ML VIAL IV SCH ×2 (09:18→21:22)
[2020-01-31] MEDS: metroNIDAZOLE 500 MG TAB PO SCH ×3 (09:18→21:22)
[2020-01-31] MEDS: HEPARIN SODIUM,PORCINE 5,000 UNIT/ML 1 ML VIAL SQ SCH ×2 (09:18→16:48)
--- NOTE | 2020-01-31 11:03 | P.PN ---
Subjective Progress Note Date: 01/31/20 Principal diagnosis: Appendicitis Patient doing well today. Denies nausea or vomiting. He did have a small bowel movement. Some flatus. Tolerating clears. Objective - Vital Signs Vital signs: Vital Signs Temp 97.7 F 01/31/20 07:37 Pulse 78 01/31/20 07:37 Resp 15 01/31/20 07:37 BP 143/92 01/31/20 07:37 Pulse Ox 98 01/31/20 07:37 Intake & Output 01/30/20 01/31/20 01/31/20 18:59 06:59 18:59 Intake Total 640 565 Output Total 90 70 80 Balance 550 -70 485 Weight 127.459 kg Intake: Oral 640 565 Output: Drainage 90 70 80 Right Abdomen 90 70 80 Other: Voiding Method Urinal Urinal # Voids 1 1 1 - Exam Abdomen: Soft, nondistended, incision clean, 2 teresa intact, minimal tenderness - Labs CBC & Chem 7: 01/31/20 08:16 01/30/20 06:15 Labs: Abnormal Lab Results - Last 24 Hours (Table) 01/31/20 Range/Units 08:16 WBC 11.0 H (3.8-10.6) k/uL Neutrophils # 8.4 H (1.3-7.7) k/uL Microbiology - Last 24 Hours (Table) 01/27/20 12:24 Blood Culture - Preliminary Blood No Growth after 72 hours Assessment and Plan (1) Acute appendicitis with appendiceal abscess Narrative/Plan: Patient doing better. Begin dressing changes to teresa sites. Advance diet to full liquids. May shower. Current Visit: Yes Status: Acute Code(s): K35.33 - ACUTE APPENDICITIS WITH PERF AND LOC PERITONITIS, WITH ABSCS SNOMED Code(s): 565924771
--- NOTE | 2020-01-31 19:44 | P.PN ---
Progress Note - Text Progress Note Date: 01/31/20 - Chief Complaint Abdominal pain Consultation: This is a 44-year-old patient of Dr. JENKINS. Chronic stable medical conditions include fatty liver, gout, glaucoma, obesity. Patient's rate is a was started on with increasing right lower quadrant abdominal pain. So D progress to get worse. Yesterday done with nausea and today had some vomiting. He presented to the ER. Computed tomography scan of the abdomen showed a possible abscess. Patient was taken to the operating room. Patient's ultrasound of significant adhesions in the right lower quadrant. Abscess cavity was noted. Around the cecum and the terminal ileum. Part of the abdominal ileum and ascending colon.- Resected. GWEN drain was placed.follow-up x-ray did show ileus. Today-patient doing better. Had a bowel movement earlier today. Diet was advanced. No abdominal pain. No nausea vomiting. Did ambulate. Review of systems: Was done for constitutional, cardiovascular, GI, pulmonary. relevant finding as above Active Medications Hydrocodone Bitart/Acetaminophen ([place] 5-325) 1 each PO Q4HR PRN PRN Reason: Pain Last Admin: 01/31/20 16:47 Dose: 1 each Documented by: Famotidine (Pepcid) 20 mg IV Q12HR [facility] Last Admin: 01/31/20 09:18 Dose: 20 mg Documented by: Heparin Sodium (Porcine) (Heparin) 5,000 unit SQ Q8HR [facility] Last Admin: 01/31/20 16:48 Dose: 5,000 unit Documented by: Hydromorphone HCl (Dilaudid) 0.5 mg IVP Q3HR PRN PRN Reason: Moderate Pain Last Admin: 01/27/20 12:26 Dose: 0.5 mg Documented by: Hydromorphone HCl (Dilaudid) 1 mg IVP Q4HR PRN PRN Reason: Pain Last Admin: 01/30/20 04:16 Dose: 1 mg Documented by: Cefepime HCl 2 gm/ Sodium (Chloride) 100 mls @ 25 mls/hr IVPB Q12HR [facility] Last Admin: 01/31/20 09:18 Dose: 25 mls/hr Documented by: Metronidazole (Flagyl) 500 mg PO TID [facility] Last Admin: 01/31/20 16:48 Dose: 500 mg Documented by: Naloxone HCl (Narcan) 0.2 mg IV Q2M PRN PRN Reason: Opioid Reversal Ondansetron HCl (Zofran) 4 mg IVP Q8HR PRN PRN Reason: Nausea And Vomiting Last Admin: 01/29/20 08:28 Dose: 4 mg Documented by: Physical examination: VITAL SIGNS: 97.7, 78, 15, 143 was 92, 98% room air GENERAL: Sitting up in a chair, eating EYES: Pupils equal. Conjunctiva normal. HEENT: External appearance of nose and ears normal, oral cavity grossly normal. NECK: JVD not raised; masses not palpable. HEART: First and second heart sounds are normal; no edema. LUNGS: Respiratory rate normal; clear to auscultation. ABDOMEN: Soft, less distended, bowel sounds absent tender, right lower quadrant GWEN drain, liver spleen not palpable, no masses palpable. PSYCH: Alert and oriented x3; mood and affect normal. INVESTIGATIONS, reviewed in the clinical context: White count 11 hemoglobin 14.9 Previous testing White count 13.3 hemoglobin 13.7 potassium 4.0 crit 0.71 Computed tomography scan of the abdomen pelvis-abscess and right lower quadrant, moderate fatty infiltration, nonobstructing left renal stone January 28-Abdominal x-ray film personally reviewed by me shows small bowel ileus Assessment: -Right lower abdomen abscess could be from appendix resulting in resection of terminal small bowel and portion of the ascending colon,-GWEN drain -Obesity BMI 38.1 -Chronic gout -Nonalcoholic fatty liver disease -Nonobstructive left kidney stone -Postop small bowel ileus clinically improved Plan: on IV cefepime and Flagyl. GWEN drain. Diet advanced to solid food. Doing much better. Thank you Dr. Foote
--- NOTE | 2020-01-31 23:40 | PN ---
PROGRESS NOTE DATE OF SERVICE: 01/31/2020 REASON FOR FOLLOW UP: Secondary peritonitis from perforated appendix. INTERVAL HISTORY: Patient is currently afebrile, has been breathing comfortably. The patient denies having any chest pain. No shortness of breath or cough. No nausea, vomiting. Abdominal pain is currently controlled. Did have a bowel movement. PHYSICAL EXAMINATION: Blood pressure 133/93 with a pulse of 92, temperature 98.1. He is 97% on room air. General description: The patient is a middle-aged male lying in bed in no distress. Respiratory system: Unlabored breathing. Clear to auscultation anteriorly. Heart S1, S2. Regular rate and rhythm. Abdomen soft, no tenderness. LABS: Hemoglobin 14.8, white count 11, creatinine 0.75. DIAGNOSTIC IMPRESSION AND PLAN: Patient with perforated appendicitis, status post appendectomy. The patient has shown overall clinical improvement. Currently on cefepime and Flagyl, to continue while inpatient, finish therapy with oral antibiotics. Continue supportive care. MMODL / IJN: [id number] /
[2020-02-01] MEDS: HEPARIN SODIUM,PORCINE 5,000 UNIT/ML 1 ML VIAL SQ SCH ×4 (00:55→23:56)
[2020-02-01] MEDS: HYDROcodone/APAP 5-325MG 1 EACH TAB PO PRN ×2 (08:04→15:53)
[2020-02-01] MEDS: FAMOTIDINE 20 MG/2 ML VIAL IV SCH ×2 (08:04→20:59)
[2020-02-01] MEDS: metroNIDAZOLE 500 MG TAB PO SCH ×3 (08:04→20:59)
[2020-02-01] MEDS: CEFEPIME 2 GM in SODIUM CHLORIDE 0.9% 100 ML IVPB SCH ×2 (08:05→20:59)
--- NOTE | 2020-02-01 11:17 | P.PN ---
Subjective Progress Note Date: 02/01/20 Principal diagnosis: Appendicitis Patient doing well today. Tolerating his diet. Stools are more formed at this time. No nausea or vomiting. GWEN remained serosanguineous. White blood cell count yesterday 11. Objective - Vital Signs Vital signs: Vital Signs Temp 98.1 F 02/01/20 07:29 Pulse 84 02/01/20 07:29 Resp 14 02/01/20 07:29 BP 120/82 02/01/20 07:29 Pulse Ox 98 02/01/20 07:29 Intake & Output 01/31/20 02/01/20 02/01/20 18:59 06:59 18:59 Intake Total 2405 1600 Output Total 110 85 30 Balance 2295 1515 -30 Intake: Oral 2405 1600 Output: Drainage 110 85 30 Right Abdomen 110 85 30 Other: Voiding Method Urinal Urinal Toilet # Voids 1 2 - Exam Abdomen: Soft, nondistended, wound sites clean, minimal tenderness - Labs CBC & Chem 7: 01/31/20 08:16 01/30/20 06:15 Labs: Microbiology - Last 24 Hours (Table) 01/27/20 12:24 Blood Culture - Preliminary Blood No Growth after 96 hours Assessment and Plan (1) Acute appendicitis with appendiceal abscess Narrative/Plan: Patient doing well. Increase diet. Continue antibiotics. Anticipate removal of GWEN drain and discharge tomorrow. Continue local wound care. Current Visit: Yes Status: Acute Code(s): K35.33 - ACUTE APPENDICITIS WITH PERF AND LOC PERITONITIS, WITH ABSCS SNOMED Code(s): 493921955
--- NOTE | 2020-02-01 17:02 | P.PN ---
Progress Note - Text Progress Note Date: 02/01/20 - Chief Complaint Abdominal pain Consultation: This is a 44-year-old patient of Dr. JENKINS. Chronic stable medical conditions include fatty liver, gout, glaucoma, obesity. Patient's rate is a was started on with increasing right lower quadrant abdominal pain. So D progress to get worse. Yesterday done with nausea and today had some vomiting. He presented to the ER. Computed tomography scan of the abdomen showed a possible abscess. Patient was taken to the operating room. Patient's ultrasound of significant adhesions in the right lower quadrant. Abscess cavity was noted. Around the cecum and the terminal ileum. Part of the abdominal ileum and ascending colon.- Resected. GWEN drain was placed.follow-up x-ray did show ileus. Improved. Today-. Doing well. Tolerating diet. Bowel movement. Has been out of bed. Pain control. Sanguinous discharge through the GWEN drain. Review of systems: Was done for constitutional, cardiovascular, GI, pulmonary. relevant finding as above Active Medications Hydrocodone Bitart/Acetaminophen ([place] 5-325) 1 each PO Q4HR PRN PRN Reason: Pain Last Admin: 02/01/20 15:53 Dose: 1 each Documented by: Famotidine (Pepcid) 20 mg IV Q12HR [facility] Last Admin: 02/01/20 08:04 Dose: 20 mg Documented by: Heparin Sodium (Porcine) (Heparin) 5,000 unit SQ Q8HR [facility] Last Admin: 02/01/20 15:53 Dose: 5,000 unit Documented by: Hydromorphone HCl (Dilaudid) 0.5 mg IVP Q3HR PRN PRN Reason: Moderate Pain Last Admin: 01/27/20 12:26 Dose: 0.5 mg Documented by: Hydromorphone HCl (Dilaudid) 1 mg IVP Q4HR PRN PRN Reason: Pain Last Admin: 01/30/20 04:16 Dose: 1 mg Documented by: Cefepime HCl 2 gm/ Sodium (Chloride) 100 mls @ 25 mls/hr IVPB Q12HR [facility] Last Admin: 02/01/20 08:05 Dose: 25 mls/hr Documented by: Metronidazole (Flagyl) 500 mg PO TID [facility] Last Admin: 02/01/20 15:53 Dose: 500 mg Documented by: Naloxone HCl (Narcan) 0.2 mg IV Q2M PRN PRN Reason: Opioid Reversal Ondansetron HCl (Zofran) 4 mg IVP Q8HR PRN PRN Reason: Nausea And Vomiting Last Admin: 01/29/20 08:28 Dose: 4 mg Documented by: Physical examination: VITAL SIGNS: 98, 78, 15, 111/71, 98% on room air GENERAL: Propped up in bed, comfortable EYES: Pupils equal. Conjunctiva normal. HEENT: External appearance of nose and ears normal, oral cavity grossly normal. NECK: JVD not raised; masses not palpable. HEART: First and second heart sounds are normal; no edema. LUNGS: Respiratory rate normal; clear to auscultation. ABDOMEN: Soft, minimal tender, bowel sounds present, right lower quadrant GWEN drain, liver spleen not palpable, no masses palpable. Dressing in place PSYCH: Alert and oriented x3; mood and affect normal. INVESTIGATIONS, reviewed in clinical context: White count 11 hemoglobin 14.9 Previous testing White count 13.3 hemoglobin 13.7 potassium 4.0 crit 0.71 Computed tomography scan of the abdomen pelvis-abscess and right lower quadrant, moderate fatty infiltration, nonobstructing left renal stone January 28-Abdominal x-ray film personally reviewed by me shows small bowel ileus Assessment: -Right lower abdomen abscess could be from appendix resulting in resection of terminal small bowel and portion of the ascending colon,-GWEN drain -Obesity BMI 38.1 -Chronic gout -Nonalcoholic fatty liver disease -Nonobstructive left kidney stone -Postop small bowel ileus clinically improved Plan: on IV cefepime and Flagyl. GWEN drain. Doing well. To be changed to to order an anti-medics upon discharge. Hopefully tomorrow. Thank you Dr. Foote
--- NOTE | 2020-02-02 00:38 | PN ---
PROGRESS NOTE DATE OF SERVICE: 02/01/2020 REASON FOR FOLLOWUP: Perforated appendicitis and secondary peritonitis. INTERVAL HISTORY: The patient is currently afebrile. Patient has been breathing comfortably. The patient denies having any chest pain or shortness of breath or cough. No nausea or vomiting. No abdominal pain or diarrhea. PHYSICAL EXAMINATION: Blood pressure 111/71 with a pulse of 78, temperature 98. He is 98% on room air. General description is a middle-aged male up in the bed in no distress. RESPIRATORY SYSTEM: Unlabored breathing, clear to auscultation anteriorly. HEART: S1, S2. Regular rate and rhythm. ABDOMEN: Soft, no tenderness. LABS: No new labs have been obtained today. DIAGNOSTIC IMPRESSION AND PLAN: Patient with perforated appendicitis and secondary peritonitis status post appendectomy. The patient seemed to have shown overall clinical improvement on cefepime and Flagyl. Plan to finish therapy with oral Ceftin and Flagyl for another 7- 10 days and close outpatient followup. MMODL / IJN: [id number] /
[2020-02-02 07:37] VITALS: BP 130/86; PULSE 79; RESP 18; TEMP 97.9
[2020-02-02] MEDS: CEFEPIME 2 GM in SODIUM CHLORIDE 0.9% 100 ML IVPB SCH (09:09)
[2020-02-02] MEDS: HEPARIN SODIUM,PORCINE 5,000 UNIT/ML 1 ML VIAL SQ SCH (09:10)
[2020-02-02] MEDS: FAMOTIDINE 20 MG/2 ML VIAL IV SCH (09:10)
[2020-02-02] MEDS: metroNIDAZOLE 500 MG TAB PO SCH (09:10)
--- NOTE | 2020-02-02 12:51 | P.DS ---
Providers Date of admission: 01/27/20 22:51 Expected date of discharge: 02/02/20 Attending physician: Juancarlos Foote Consults: 01/27/20 14:08 Consult Physician Routine Consulting Provider: Mack Aguillon Consult Reason/Comments: medical management Do you want consulting provider notified?: Yes 01/27/20 18:02 Consult Physician Routine Consulting Provider: Ann Marie Mathias Consult Reason/Comments: perforated appendicitis Do you want consulting provider notified?: Yes Primary care physician: Bentley Lockhart Hospital Course: Discharge diagnosis 1. Acute perforated appendicitis with abscess status post right colectomy and excision of Meckel's diverticulum Hospital course 44-year-old male who presented to the emergency room with chief complaint of right lower quadrant abdominal pain. He had CT abdomen and pelvis showing 6.6 x 3.2 x 4.8 hypodensity in the right paracolic gutter inferior to the cecum suspicious for abscess. Correlate for acute appendicitis. Small amount of ascites adjacent to the liver and spleen and within the pelvis. And he had an elevated white count. He was admitted to surgical service. He is status post right colectomy and excision of Meckel's diverticulum. Patient tolerated surgery well. No complications after surgery. He's tolerated rated advancement of diet. He is having bowel movements. He is stable for discharge home. He was also followed by infectious disease and they are recommending Ceftin and Flagyl for 10 more days. Drainage tube removed prior to discharge. Physician [employer] note has been reviewed by physician. Signing provider agrees with the documented findings, assessment, and plan of care. Patient Condition at Discharge: Stable Plan - Discharge Summary Discharge Rx Participant: No New Discharge Prescriptions: New Cefuroxime Axetil [Ceftin] 500 mg PO BID 10 Days #20 tab metroNIDAZOLE [Flagyl] 500 mg PO TID #30 tab Ibuprofen [Motrin] 600 mg PO Q8HR PRN #30 tab PRN Reason: Pain Continue Travoprost [Travatan Z 0.004%] 1 drop BOTH EYES HS Febuxostat [Uloric] 40 mg PO DAILY Cholecalciferol (Vitamin D3) [Vitamin D3] 2,000 unit PO DAILY Discharge Medication List Cholecalciferol (Vitamin D3) [Vitamin D3] 2,000 unit PO DAILY 03/05/18 [History] Febuxostat [Uloric] 40 mg PO DAILY 03/05/18 [History] Travoprost [Travatan Z 0.004%] 1 drop BOTH EYES HS 03/05/18 [History] Cefuroxime Axetil [Ceftin] 500 mg PO BID 10 Days #20 tab 02/02/20 [Rx] Ibuprofen [Motrin] 600 mg PO Q8HR PRN #30 tab 02/02/20 [Rx] metroNIDAZOLE [Flagyl] 500 mg PO TID #30 tab 02/02/20 [Rx] Follow up Appointment(s)/Referral(s): Bentley Lockhart MD [Primary Care Provider] - 1-2 days Juancarlos Foote MD [STAFF PHYSICIAN] - 1 Week Activity/Diet/Wound Care/Special Instructions: No driving while taking [place] No lifting over 10 pounds You may shower. No soaking or tub baths Very light activity until you are reevaluated at your follow up appointment with your surgeon Diet Regular Discharge Disposition: HOME SELF-CARE
--- NOTE | 2020-02-02 14:36 | PN ---
PROGRESS NOTE DATE OF SERVICE: 02/02/2020. REASON FOR FOLLOWUP: Perforated diverticulitis, secondary peritonitis. INTERVAL HISTORY: Patient is currently afebrile. The patient is breathing comfortably. The patient denies having any chest pain. No shortness of breath, no cough. No nausea, no vomiting, no abdominal pain, no diarrhea. PHYSICAL EXAMINATION: Blood pressure 130/86, pulse of 69, temperature 97.9. He is 98% on room air. General description is a middle-aged male lying in bed in no distress. RESPIRATORY SYSTEM: Unlabored breathing, clear to auscultation anteriorly. HEART: S1, S2. Regular rate and rhythm. ABDOMEN: Soft, no tenderness. LABS: No new labs have been obtained today. DIAGNOSTIC IMPRESSION AND PLAN: Patient with perforated appendicitis and secondary peritonitis. Overall clinical improvement on cefepime and Flagyl. Finish therapy with oral Ceftin and Flagyl for another 10 days and close outpatient followup. MMODL / IJN: [id number] /
--- NOTE | 2020-02-02 14:48 | CDI ---
Documentation Clarification Form Date: 02/02/2020 02:02:50 PM From: Charmaine Ramos RN, CCDS Admit Date: 01/27/2020 10:51:00 PM Patient Name: Roger Mcclellan Visit Number: [id number] Discharge Date: ATTENTION: The Clinical Documentation Specialists (CDI) and [facility] Coding Staff appreciate your assistance in clarifying documentation. Please respond to the clarification below the line at the bottom and electronically sign. The CDI & [facility] Coding staff will review the response and follow-up if needed. Please note: Queries are made part of the Legal Health Record. If you have any questions, please contact the author of this message via ITS. Dr. Juancarlos Foote 01/28 post operative ileus is documented in the abdominal x-ray report and in the Internal medicine progress notes on 01/28 -01/31. Please provide your clinical opinion of the postop small bowel ileus. Patients Admitting Diagnosis: Acute appendicitis with ruptured appendix Post-Operative Diagnosis: Acute perforated appendicitis with abscess, Excision of Meckel's diverticlum Procedure performed: Diagnostic laparoscopy Right colectomy Excision of James's diverticulum History/Risk Factors: Fatty liver, Gout, Glaucoma Clinical Indicators: 44-year-old male post procedure on 01/28 abdominal x-ray showing ileus. He was complaining of some episode of nausea and vomiting. He was tolerating ice chips. Denies any flatness or bowel movements. Treatment: Monitor diet intake Cefepime 2 gm iv q 12 hrs Pepcid iv q 12 Zofran 4 mg ivp q 8 hrs prn (01/27 x2, 01/28 x1) continue ice chips (01/28) advance as tolerated Internal Medicine progress note 01/30 "follow-up x-ray did show ileus. Today patient doing better. had a bowel movement earlier today. Diet was advance. No abdominal pain. N nausea, vomiting". In order to accurately reflect this patients severity of illness, please clarify if the postoperative ileus: -has been ruled out -is a complication of surgical procedure -is an expected outcome of the surgical procedure -is related to co-morbid condition(s) of -Other please specify -Unable to determine (Last Revision: July 2019) Expected outcomes surgical procedure MTDD
--- NOTE | 2020-02-04 22:55 | CDI ---
Documentation Clarification Form Date: 02/05/2020 From: Tex Faith Phone: If you have a question about this query, please contact Claire Soliman Demand Generation Manager at [phone] between 8am and 5pm. Admit Date: 01/27/2020 Discharge Date: 02/02/2020 Patient Name: Roger Mcclellan Visit Number: [id number] ATTENTION: The Clinical Documentation Specialists (CDI) and [facility] Coding Staff appreciate your assistance in clarifying documentation. Please respond to the clarification below the line at the bottom and electronically sign. The CDI & [facility] Coding staff will review the response and follow-up if needed. Please note: Queries are made part of the Legal Health Record. If you have any questions, please contact the author of this message via ITS. 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 Documentation states:Acute perforated appendicitis with abscess status post right colectomy and excision of Meckel's diverticulum Patient history/risk factors: Ileus, Gout, Diverticulitis Treatment: Right colectomy. As attending Surgeon, Coding is required to confirm that you acknowledge the Pathology report-APPENDIX AND CECUM, RESECTION: Appendiceal mucinous adenocarcinoma for accuracy reporting of patient's final diagnosis. we are not allowed to code diagnoses from the Path Report without confirming with the Attending surgeon(when post op dx by surgeon does not include the pathological diagnoses). Do you acknowledge the above Pathological diagnosis for this Patient? Yes No Other (please specify) Unable to determine Yes I acknowledge a pathologic diagnosis MTDD
--- NOTE | 2020-04-02 13:36 | P.PN ---
Subjective Progress Note Date: 02/02/20 Principal diagnosis: Acute perforated appendicitis with abscess status post right colectomy and excision of Meckel's diverticulum This is a 44-year-old patient of Dr. JENKINS. Chronic stable medical conditions include fatty liver, gout, glaucoma, obesity. Patient's rate is a was started on with increasing right lower quadrant abdominal pain. So D progress to get worse. Yesterday done with nausea and today had some vomiting. He presented to the ER. Computed tomography scan of the abdomen showed a possible abscess. Patient was taken to the operating room. Patient's ultrasound of significant adhesions in the right lower quadrant. Abscess cavity was noted. Around the cecum and the terminal ileum. Part of the abdominal ileum and ascending colon.- Resected. GWEN drain was placed.follow-up x-ray did show ileus. Improved. 01/31-. Doing well. Tolerating diet. Bowel movement. Has been out of bed. Pain control. Sanguinous discharge through the GWEN drain. 02/02/2020 Patient is status post right colectomy and excision of Janette's diverticulum. Patient is currently tolerating oral diet and abdominal pain is much improved. Patient is being discharged home today. ID recommends Ceftin and Flagyl for 10 more days. Drainage tube removed prior to discharge. Recent laboratory data showed WBC 11.0 and hemoglobin 14.9. Discharge me dication reconciliation was done. Review of systems: Was done for constitutional, cardiovascular, GI, pulmonary. relevant finding as above Objective - Vital Signs Vital signs: Vital Signs Temp 97.9 F 02/02/20 07:36 Pulse 79 02/02/20 07:36 Resp 18 02/02/20 07:36 BP 130/86 02/02/20 07:36 Pulse Ox 98 02/02/20 07:36 Intake & Output 02/01/20 02/02/20 02/02/20 18:59 06:59 18:59 Intake Total 940 720 300 Output Total 80 50 30 Balance 860 670 270 Weight 127.459 kg Intake: Intake, IV Titration 300 Amount Cefepime 2 gm In Sodium 100 Chloride 0.9% 100 ml @ 25 mls/hr IVPB Q12HR [facility] Rx #:[id number] Lactated Ringers 1,000 ml 200 @ 0 mls/hr IV .[facility] Rx#:[id number] Oral 940 420 300 Output: Drainage 80 50 30 Right Abdomen 80 50 30 Other: Voiding Method Toilet Toilet Toilet # Voids 2 1 # Bowel Movements 1 - Labs CBC & Chem 7: 01/31/20 08:16 01/30/20 06:15 Labs: Microbiology - Last 24 Hours (Table) 01/27/20 12:24 Blood Culture - Preliminary Blood No Growth after 120 hours Assessment and Plan Assessment: Physical examination: VITAL SIGNS: 98, 78, 15, 111/71, 98% on room air GENERAL: Propped up in bed, comfortable EYES: Pupils equal. Conjunctiva normal. HEENT: External appearance of nose and ears normal, oral cavity grossly normal. NECK: JVD not raised; masses not palpable. HEART: First and second heart sounds are normal; no edema. LUNGS: Respiratory rate normal; clear to auscultation. ABDOMEN: Soft, minimal tender, bowel sounds present, right lower quadrant GWEN drain, liver spleen not palpable, no masses palpable. Dressing in place PSYCH: Alert and oriented x3; mood and affect normal. INVESTIGATIONS, reviewed in clinical context: White count 11 hemoglobin 14.9 Previous testing White count 13.3 hemoglobin 13.7 potassium 4.0 crit 0.71 Computed tomography scan of the abdomen pelvis-abscess and right lower quadrant, moderate fatty infiltration, nonobstructing left renal stone January 28-Abdominal x-ray film personally reviewed by me shows small bowel ileus Assessment: - Acute perforated appendicitis with abscess status post right colectomy and excision of Meckel's diverticulum -Obesity BMI 38.1 -Chronic gout -Nonalcoholic fatty liver disease -Nonobstructive left kidney stone -Postop small bowel ileus clinically improved Plan: on IV cefepime and Flagyl. GWEN drain. Doing well. To be changed to to order an anti-medics upon discharge.
== END 2020-02-02 14:30 | disposition home or self-care (01) | DRG 329 ==
LOC: EC 10:35 → 1SOBS 12:16 → 4SSUR 18:33 → OBSVTOIN 22:51
PROVIDERS: ADMIT Surgery; ATTEND Surgery
PROC: 0WJG4ZZ Inspection of Peritoneal Cavity, Percutaneous Endoscopic Approach (ICD-10-PCS; principal; 2020-01-27 11:00)
PROC: 0DTF0ZZ Resection of Right Large Intestine, Open Approach (ICD-10-PCS; principal; 2020-01-27 11:00)
PROC: 0DTJ0ZZ Resection of Appendix, Open Approach (ICD-10-PCS; principal; 2020-01-27 11:00)
DX: C18.1 Malignant neoplasm of appendix (principal); K35.33 Acute appendicitis with perforation, localized peritonitis, and gangrene, with abscess; K56.7 Ileus, unspecified; M1A.9XX0 Chronic gout, unspecified, without tophus (tophi); E66.9 Obesity, unspecified; N20.0 Calculus of kidney; H40.9 Unspecified glaucoma; Q43.0 Meckel's diverticulum (displaced) (hypertrophic); Z11.59 Encounter for screening for other viral diseases; Z88.0 Allergy status to penicillin; Z79.899 Other long term (current) drug therapy; Z98.890 Other specified postprocedural states; Z87.891 Personal history of nicotine dependence; Z80.9 Family history of malignant neoplasm, unspecified; Z68.38 Body mass index [BMI] 38.0-38.9, adult
CPT/HCPCS: 36415; 74019; 74177; 80048; 80053; 81003; 82150; 83605; 83690; 83735; 85025; 87040; 88304; 88307; 96361; 96365; 96375; 99285

== ENCOUNTER → 2020-02-25 | Day surgery (SDC) | payer BC ==
[2020-02-20 13:01] VITALS: BMI 34.9
[~2020-02-25] MED LIST: ACETAMINOPHEN TAB 500 MG TAB PO ONE; BUPIVACAINE (PF) 0.5% 30 ML VIAL SQ ONE; DEXAMETHASONE SOD PHOSPHATE 10 MG/ML 1 ML VIAL IV ONE; HEPARIN SODIUM,PORCINE 100 UNIT/ML 5 ML VIAL IV ONE; HEPARIN SODIUM,PORCINE 5,000 UNIT/ML 1 ML VIAL SQ ONE; HYDROmorphone 0.5 MG/0.5 ML SYRINGE IVP PRN; IOPAMIDOL-370 50ML BTL MISCELLANE ONE; KETAMINE 10 MG/ML 20 ML VIAL ONE; LACTATED RINGERS 1,000 ML IV SCH; MIDAZOLAM 2 MG/2 ML VIAL IV PRN; MIDAZOLAM 2 MG/2 ML VIAL ONE; ONDANSETRON 4 MG/2 ML VIAL IVP ONE; PROPOFOL 10 MG/ML 20 ML VIAL IV ONE; Pre Op ABX Message 1 EACH MISC MISCELLANE ONE; SCOPOLAMINE 1.5MG/72HR PATCH TRANSDERM ONE; fentaNYL (PF) 50 MCG/ML 2 ML AMP ONE
[2020-02-25 11:10] VITALS: RESP 16; TEMP 97.4
--- NOTE | 2020-02-25 11:28 | P.GSHP ---
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 Patient has undergone right quadrant. He presents today for Port-A-Cath placement for chemotherapy. Past Medical History Past Medical History: Cancer, GERD/Reflux Additional Past Medical History / Comment(s): Gout, bilateral Glaucoma, Fatty Liver. Recent Tumor in Appendix that ruptured. History of Any Multi-Drug Resistant Organisms: None Reported Past Surgical History: Appendectomy, Hernia Repair Additional Past Surgical History / Comment(s): Colonoscopy, rubber band hemorrhoid ligation, broken collar bone as child. Past Anesthesia/Blood Transfusion Reactions: No Reported Reaction Past Psychological History: No Psychological Hx Reported Smoking Status: Former smoker Past Alcohol Use History: None Reported Additional Past Alcohol Use History / Comment(s): Quit smoking 6 yrs ago, smoked for 15 yrs on and off. Past Drug Use History: Marijuana Additional Drug Use History / Comment(s): Has medical card, uses [facility]ja[facility] daily. Aware no use 24 hrs prior to procedure. - Past Family History Mother Family Medical History: Cancer Additional Family Medical History / Comment(s): "Female Cancer." Father Additional Family Medical History / Comment(s): Heroin overdose. Medications and Allergies Home Medications Medication Instructions Recorded Confirmed Type Cholecalciferol (Vitamin D3) 2,000 unit PO DAILY 03/05/18 02/20/20 History [Vitamin D3] Febuxostat [Uloric] 40 mg PO DAILY 03/05/18 02/20/20 History Travoprost [Travatan Z 0.004%] 1 drop BOTH EYES HS 03/05/18 02/20/20 History Ibuprofen [Motrin] 600 mg PO Q8HR PRN #30 tab 02/02/20 02/20/20 Rx Allergies Allergy/AdvReac Type Severity Reaction Status Date / Time Penicillins Allergy Unknown Unknown Verified 02/25/20 11:06 Childhood Surgical - Exam Vital Signs Temp Pulse Resp BP Pulse Ox 97.4 F L 77 16 136/93 97 02/25/20 11:09 02/25/20 11:09 02/25/20 11:09 02/25/20 11:02/25/20 11:09 - General well developed, well nourished, no distress - Eyes PERRL - ENT normal pinna - Neck no masses - Respiratory normal expansion - Cardiovascular Rhythm: regular - Abdomen Abdomen: soft, non tender Assessment and Plan Assessment: History of carcinoma appendix. Patient undergo Port-A-Cath placement
--- NOTE | 2020-02-25 13:17 | P.OP ---
Date of Procedure: 02/25/20 Preoperative Diagnosis: Colon cancer Postoperative Diagnosis: Colon cancer Procedure(s) Performed: Right subclavian Port-A-Cath Anesthesia: MAC Surgeon: Juancarlos Foote Estimated Blood Loss (ml): 5 Pathology: none sent Condition: stable Disposition: PACU Description of Procedure: MPROCEDURE: The patient was placed on the operating table in the supine position. She received MAC anesthetic. The [right] chest was prepped and draped in the usual sterile fashion. The skin underneath the right clavicle was anesthetized with 1% Xylocaine and using Seldinger technique, the right subclavian vein was cannulized. The wire was placed through the needle and positioned under fluoroscopy. Next, the needle was removed and the port site was anesthetized with 1% Xylocaine. Skin was incised with #15 blade and port pocket was made using blunt and sharp dissection. Following this the catheter was attached to the sport and the port was flushed. The port was positioned into the pocket site and was secured with 3-0 Vicryl suture. The catheter was then brought out through the wire site and then the dilator sheath was placed over the wire and the dilator and the wire were removed. The catheter was placed through the sheath and the sheath was removed. The port was flushed with hep-lock solution. Skin was closed with interrupted 3-0 Vicryl sutures. Steri-Strips were applied. The patient tolerated the procedure well. The patient was sent to recovery room for chest x-ray after the procedure.
--- NOTE | 2020-02-25 13:28 | FL ---
Fluoroscopy HISTORY: Intravenous catheter placement 6 seconds fluoroscopy time supplied to the referring clinician. 1 intraoperative C-arm images docume nt the procedure. See dictated report from general surgery.
--- NOTE | 2020-02-25 13:42 | XR ---
EXAMINATION TYPE: XR chest 1V portable DATE OF EXAM: 02/25/2020 COMPARISON: Prior chest x-ray 11/13/2019 HISTORY: Port-A-Cath placement TECHNIQUE: Single frontal view of the chest is obtained. FINDINGS: There has been interval placement of a Port-A-Cath in the right pectoral region via right subclavian approach, distal tip is overlying the superior vena cava. No evident pneumothorax or pleur al effusion. IMPRESSION: No evident complication status post Port-A-Cath placement.
[2020-02-25 13:56] VITALS: BP 125/76; PULSE 83
== END ==
LOC: OR 10:50
PROVIDERS: ATTEND Surgery
DX: C18.1 Malignant neoplasm of appendix (principal); K21.9 Gastro-esophageal reflux disease without esophagitis; M10.9 Gout, unspecified; H40.9 Unspecified glaucoma; K76.0 Fatty (change of) liver, not elsewhere classified; Z98.890 Other specified postprocedural states; Z87.891 Personal history of nicotine dependence; Z79.899 Other long term (current) drug therapy; Z80.9 Family history of malignant neoplasm, unspecified; Z81.3 Family history of other psychoactive substance abuse and dependence; Z88.0 Allergy status to penicillin; K64.9 Unspecified hemorrhoids; K46.9 Unspecified abdominal hernia without obstruction or gangrene
CPT/HCPCS: 36561; 77001; 71045; C1788; J2250; J1644; J1642; J1100; J2405; J3010; J2704; Q9967

== ENCOUNTER → 2020-02-27 | Outpatient (CLI) | payer BC ==
--- NOTE | 2020-03-04 09:08 | PE ---
EXAMINATION TYPE: PET CT fusion skull to thigh DATE OF EXAM: 02/27/2020 COMPARISON: CT abdomen pelvis 02/16/2020 Prior PET/CT: None HISTORY: Colorectal cancer TECHNIQUE: Following the intravenous administration of 9.48 mCi of F-18 FDG, whole body images are p erformed from the skull base to the midthigh. Images are reviewed on the computer in the coronal, ax ial, and sagittal planes. Reconstructed rotating images are created on independent workstation and r eviewed on the computer. A localization and attenuation correction CT is performed in conjunction w ith the PET scan. SCAN: Initial Scan at our institution Blood glucose: 88 mg/dL FINDINGS: NECK: No hypermetabolic activity. THORAX: No hypermetabolic activity. ABDOMEN/PELVIS: Status post right hemicolectomy with anastomosis in the right upper quadrant. There i s hypermetabolic activity of the hepatic flexure a few centimeters distally from the right upper quad rant anastomosis associated with an area of colonic narrowing (SUV 3.86, image 3:160, PET CT image 16 0). There is hypermetabolic activity of the sigmoid colon, in a region of diverticulosis (SUV 4.64, P ET CT image 219). There is mild metabolic activity in the region of the right anus (PET CT image 263) . There is diffuse omental caking and nodularity which does not demonstrate metabolic activity. Withi n the left pelvis there is peritoneal thickening and 2.9 x 4.1 cm area which may be residual fluid, a nd is decreased versus 01/27/2020 CT comparison. Just superior to this pelvic collection is a 1.8 x 2.6 cm nodular or soft tissue density (3:218) which demonstrates mild metabolic activity greater than bl ood pool and less than liver. Prominent mesenteric upper abdominal lymph nodes with no metabolic acti vity. OSSEOUS STRUCTURES: No hypermetabolic activity. No aggressive osseous destructive lesions. LOCALIZATION CT: Right-sided MediPort distal tip in the distal SVC. No adrenal nodule. Nonobstructing bilateral renal calculi measuring 3 mm on the right and 4 mm on the left. No hydronephrosis. There i s diffuse omental and mesenteric stranding. No pneumoperitoneum. Left lateral abdominal wall intramus cular lipoma. IMPRESSION: 1. Hypermetabolic activity at the hepatic flexure in a region of narrowing. Findings may represent si te of colon neoplasm versus area of peristalsis. Recommend correlation with colonoscopy findings. 2. Hypermetabolic activity of the sigmoid colon in the region of diverticular disease likely inflamma tory. 3. No evidence of metabolic activity in the region of the anastomosis to suggest residual cancer. 4. Diffuse omental metastatic disease with no hypermetabolic activity. 5. Superolateral left pelvis peritoneal thickening with a 2.6 cm soft tissue nodule versus lymph node with metabolic activity less than liver. Findings may represent reactive lymph node versus metastati c disease. Attention on follow-up imaging. 6. Decreased pelvic fluid versus 01/27/2020 CT comparison. 7. No metastatic cancer of the neck, chest, or osseous structures.
== END | disposition home or self-care (01) ==
LOC: RADPETMAIN 13:29
PROVIDERS: ATTEND Internal Medicine Hematology & Oncology
DX: C18.1 Malignant neoplasm of appendix (principal); C78.6 Secondary malignant neoplasm of retroperitoneum and peritoneum; K57.30 Diverticulosis of large intestine without perforation or abscess without bleeding; K76.89 Other specified diseases of liver
CPT/HCPCS: 78815; A9552

== ENCOUNTER 2020-04-19 07:15 | Day surgery (SDC) | payer BC ==
[2020-04-14 16:18] VITALS: BMI 35.9
[~2020-04-19 07:15] MED LIST changes: -BUPIVACAINE (PF) 0.5% 30 ML VIAL SQ ONE; -HEPARIN SODIUM,PORCINE 100 UNIT/ML 5 ML VIAL IV ONE; -HEPARIN SODIUM,PORCINE 5,000 UNIT/ML 1 ML VIAL SQ ONE; -IOPAMIDOL-370 50ML BTL MISCELLANE ONE; -KETAMINE 10 MG/ML 20 ML VIAL ONE; -LACTATED RINGERS 1,000 ML IV SCH; -MIDAZOLAM 2 MG/2 ML VIAL ONE; -PROPOFOL 10 MG/ML 20 ML VIAL IV ONE; -fentaNYL (PF) 50 MCG/ML 2 ML AMP ONE
[2020-04-19 07:38] VITALS: TEMP 98.2
[2020-04-19] MEDS: LACTATED RINGERS 1,000 ML IV SCH ×2 (07:40→08:59)
[2020-04-19] MEDS ORDERED: LIDOCAINE 1% (10MG/ML) FOR IV START INTRADERMA ONE (07:41)
[2020-04-19] MEDS: HEPARIN SODIUM,PORCINE 5,000 UNIT/ML 1 ML VIAL SQ ONE ×2 (07:52→09:33)
--- NOTE | 2020-04-19 08:29 | P.GSHP ---
History of Present Illness H&P Date: 04/19/20 Chief Complaint: colon Cancer Patient presents today for Port-A-Cath placement. He had a previous Port-A-Cath where the catheter migrated. Patient's history of appendiceal cancer. Past Medical History Past Medical History: Cancer, GERD/Reflux Additional Past Medical History / Comment(s): Gout, bilateral Glaucoma, Fatty Liver. Tumor in Appendix that ruptured, colon cancer History of Any Multi-Drug Resistant Organisms: None Reported Past Surgical History: Appendectomy, Hernia Repair Additional Past Surgical History / Comment(s): Colonoscopy, rubber band hemorrhoid ligation, broken collar bone as child.port a cath, laparotomy - ruptured appendix Past Anesthesia/Blood Transfusion Reactions: No Reported Reaction Smoking Status: Former smoker - Past Family History Mother Family Medical History: Cancer Additional Family Medical History / Comment(s): "Female Cancer." Father Additional Family Medical History / Comment(s): Heroin overdose. Medications and Allergies Home Medications Medication Instructions Recorded Confirmed Type Cholecalciferol (Vitamin D3) 2,000 unit PO DAILY 03/05/18 04/19/20 History [Vitamin D3] Febuxostat [Uloric] 40 mg PO DAILY 03/05/18 04/19/20 History Travoprost [Travatan Z 0.004%] 1 drop BOTH EYES HS 03/05/18 04/19/20 History Ibuprofen [Motrin] 600 mg PO Q8HR PRN #30 tab 02/02/20 04/19/20 Rx OLANZapine [ZyPREXA] 5 mg PO DAILY PRN 04/14/20 04/19/20 History Allergies Allergy/AdvReac Type Severity Reaction Status Date / Time Penicillins Allergy Unknown Unknown Verified 04/19/20 07:28 Childhood Surgical - Exam Vital Signs Temp Pulse Resp BP Pulse Ox 98.2 F 87 16 124/73 97 04/19/20 07:36 04/19/20 07:36 04/19/20 07:36 04/19/20 07:36 04/19/20 07:36 - General well developed, well nourished, no distress - Eyes PERRL - Neck no masses - Cardiovascular Rhythm: regular - Abdomen Abdomen: soft, non tender Assessment and Plan Assessment: History of appendiceal cancer. Patient will Port-A-Cath placement today.
[2020-04-19] MEDS ORDERED: KETAMINE 10 MG/ML 20 ML VIAL ONE (08:57)
[2020-04-19] MEDS ORDERED: fentaNYL (PF) 50 MCG/ML 2 ML AMP ONE (08:57)
[2020-04-19] MEDS ORDERED: MIDAZOLAM 2 MG/2 ML VIAL ONE (08:57)
[2020-04-19] MEDS ORDERED: LIDOCAINE 1%/EPI 1:200,000 MPF 10 ML VIAL SQ ONE (09:12)
[2020-04-19] MEDS ORDERED: IOPAMIDOL-300 50ML BTL MISCELLANE ONE (09:25)
--- NOTE | 2020-04-19 09:41 | P.OP ---
Date of Procedure: 04/19/20 Preoperative Diagnosis: Appendiceal cancer Postoperative Diagnosis: Appendiceal cancer Procedure(s) Performed: Removal of right subclavian Port-A-Cath Placement of left subclavian Port-A-Cath Anesthesia: MARBIN Surgeon: Juancarlos Foote Estimated Blood Loss (ml): 5 Pathology: none sent Condition: stable Disposition: PACU Description of Procedure: Patient's placed on the operative table in the supine position. He received general anesthesia. His chest was prepped and draped usual fashion. The right subclavian Port-A-Cath was examined. The skin was incised. Using blunt and sharp dissection with cautery the Port-A-Cath was dissected free. The skin was then closed interrupted 3-0 Monocryl suture. Next the left subclavian vein was found using the Seldinger technique. The wire was then placed insufflated again. The position was confirmed with fluoroscopy. The incision was made in the skin and then the subcutaneous port was created using cautery. The introducer sheaths placed overtop the wire. The catheter was then placed through the introducer sheath after the wire was withdrawn. The catheters then cut To the port. The port was then placed in subcutaneous pocket. Fluoroscopy was used to position the catheter tip at the age her caval junction. The port was then flushed with heparinized saline. Skin closed interrupted 3-0 Monocryl suture. Dermabond was applied. Patient top she will sent to recovery in stable condition.
--- NOTE | 2020-04-19 10:20 | XR ---
EXAMINATION TYPE: XR chest 1V portable DATE OF EXAM: 04/19/2020 Comparison: 02/25/2020 Clinical History: 44-year-old male Mediport Findings: There has been removal of the right-sided injection port. Left-sided chest port is now present with s ubclavian access and tip at the mid SVC level. We note ar 9 mm segment of catheter collapse at the le ian of the first rib clavicle junction. Heart normal size. Aorta and pulmonary vasculature within nor mal limits. No consolidation or pleural effusion. Impression: 1. Removal of the right-sided injection port and placement of a left-sided chest port. Subclavian acc ess noted. There is collapse or pinching of the subclavian catheter at the level of the first rib and clavicle junction. 2. No acute cardiopulmonary process.
[2020-04-19 10:22] VITALS: BP 129/80; PULSE 76; RESP 18
--- NOTE | 2020-04-19 14:31 | FL ---
Fluoroscopy HISTORY: Intravenous catheter placement 17 seconds fluoroscopy time supplied to the referring clinician. 1 intraoperative C-arm images docum ent the procedure. See dictated report from general surgery.
== END 2020-04-19 10:42 | disposition home or self-care (01) ==
LOC: OR 07:15
PROVIDERS: ATTEND Surgery
DX: T82.524A Displacement of infusion catheter, initial encounter (principal); C18.9 Malignant neoplasm of colon, unspecified; C18.1 Malignant neoplasm of appendix; Z88.0 Allergy status to penicillin; M10.9 Gout, unspecified; H40.9 Unspecified glaucoma; K21.9 Gastro-esophageal reflux disease without esophagitis; Z79.899 Other long term (current) drug therapy; Z98.890 Other specified postprocedural states; Z87.891 Personal history of nicotine dependence; Z80.9 Family history of malignant neoplasm, unspecified
CPT/HCPCS: 77001; 71045; 36590; 36561; C1769; C1788; J2250; J1644; J1100; J2405; J3010; Q9967

== ENCOUNTER 2020-05-06 11:53 | Day surgery (SDC) | payer BC ==
[2020-05-06 12:08] VITALS: RESP 16; TEMP 98.9
[2020-05-06] MEDS ORDERED: IOPAMIDOL-370 50ML BTL INJ ONE (12:26)
[2020-05-06 12:46] VITALS: BP 134/84; PULSE 69
--- NOTE | 2020-05-06 14:09 | IR ---
Fluoroscopic portogram([facility]). HISTORY: Device malfunction. The patient presented to the CVL with a Crum needle within the port. Preliminary fluoroscopy demonst rated the catheter to be intact. One image submitted and 0.2 minutes of fluoroscopy. Catheter free ly aspirated and injection demonstrated wide patency of the catheter. IMPRESSION: 1. No obstruction or extravasation. See above.
== END 2020-05-06 12:44 | disposition home or self-care (01) ==
LOC: CATHCVL 11:53
PROVIDERS: ATTEND Radiology Diagnostic Radiology
DX: T82.524A Displacement of infusion catheter, initial encounter (principal); C18.1 Malignant neoplasm of appendix; K21.9 Gastro-esophageal reflux disease without esophagitis; M10.9 Gout, unspecified; H40.9 Unspecified glaucoma; K76.0 Fatty (change of) liver, not elsewhere classified; Z88.0 Allergy status to penicillin; Z90.49 Acquired absence of other specified parts of digestive tract; Z87.19 Personal history of other diseases of the digestive system; Z98.890 Other specified postprocedural states; Z87.81 Personal history of (healed) traumatic fracture; Z87.891 Personal history of nicotine dependence; Z79.899 Other long term (current) drug therapy; Z80.9 Family history of malignant neoplasm, unspecified; Z81.3 Family history of other psychoactive substance abuse and dependence
CPT/HCPCS: 36598; J1642; Q9967

== ENCOUNTER → 2020-05-28 | Outpatient (CLI) | payer BC ==
--- NOTE | 2020-05-30 11:43 | PE ---
Nuclear medicine PET/CT HISTORY: Colorectal carcinoma, subsequent Patient received 10.6 mCi F-18 FDG and delayed scanning was performed from the skull base to the mid thighs. Localization and attenuation correction CT scan was performed. Correlation to prior nuclear medicine PET/CT 02/27/2020 Chest and neck: No supraclavicular or cervical adenopathy. Uptake along the pharyngeal tonsils is lik dahiana physiologic. There is a port present in left pectoral region coursing via a subclavian approach w ith distal tip in the superior vena cava. No axillary, mediastinal, or hilar adenopathy. No evident l vanessa mass. There is no pleural or pericardial effusion. ABDOMEN: There is abnormal density within the mesenteric fat consistent with omental caking. No signi ficant uptake noted however, mild uptake is present in some areas similar to prior. There is no ascit es or evident liver mass. Uptake is present along the bowel which may be physiologic. Postop changes are present. Osseous structures show no focal suspicious uptake. Some uptake noted within the pelvis is fairly sym metric and may represent marrow activation. IMPRESSION: Omental caking is again noted. Postop changes and additional findings above.
== END | disposition home or self-care (01) ==
LOC: RADPETMAIN 14:10
PROVIDERS: ATTEND Internal Medicine Hematology & Oncology
DX: C18.1 Malignant neoplasm of appendix (principal); K66.8 Other specified disorders of peritoneum; Z92.21 Personal history of antineoplastic chemotherapy; Z98.890 Other specified postprocedural states
CPT/HCPCS: 78815; A9552

== ENCOUNTER → 2020-12-24 | Outpatient (CLI) | payer BC, OTHER ==
[2020-12-24 10:15] LABS: African American GFR (CKD) >90 (>60 ml/min/1.73 sqM); Blood Urea Nitrogen 11 mg/dL (9-20); Non-African American GFR(CKD) >90 (>60 ml/min/1.73 sqM)
--- NOTE | 2020-12-24 11:38 | CT ---
EXAMINATION TYPE: CT ChestAbdPelvis wo/w con DATE OF EXAM: 12/24/2020 COMPARISON: PET CT fusion 05/28/2020 HISTORY: Follow up appendix cancer. CT DLP: 2455.4 mGycm CONTRAST: CT scan of the chest, abdomen and pelvis is performed with Oral Contrast and with IV Contrast, patien t injected with 100 mL of Isovue 300. CT Chest: LUNGS: The lungs are clear and free of infiltrate. Basilar atelectasis and parenchymal scarring seen at the lung bases. No pulmonary nodule or mass is detected. No pleural effusion or CT evidence of in terstitial lung disease. MEDIASTINUM: Thoracic aorta is of normal caliber. The heart is not enlarged. No evidence for media stinal mass or adenopathy. HILAR STRUCTURES: No evidence for mass. No hilar adenopathy is appreciated. OTHER: No significant abnormality. CONTRAST CT ABDOMEN AND PELVIS FINDINGS: LIVER/GB: The gallbladder is surgically absent. No space occupying hepatic lesion. Biliary tree is of normal caliber. PANCREAS: No inflammation. No distinct mass. SPLEEN: Interval splenectomy. ADRENALS: No nodule. No thickening. KIDNEYS/BLADDER: No hydronephrosis. Nonobstructing nephrolithiasis identified. No distinct renal mas s. BOWEL: There is right lower quadrant ostomy. Previously noted omental caking is no longer evident thi s may reflect posttreatment change. There is focal soft tissue within the left upper quadrant which c ould reflect splenule as there has been interval splenectomy. Postsurgical changes about the sigmoid colon. No evidence for recurrent or residual mass. GENITAL ORGANS: No gross abnormality. LYMPH NODES: No greater than 1cm abdominal or pelvic lymph nodes are appreciated. AORTA: No significant abnormality. OSSEOUS STRUCTURES: No significant abnormality is seen. OTHER: No significant additional abnormality is seen. IMPRESSION: 1. Interval resolution previously noted omental caking. There is interval splenectomy with soft tissu e identified within the left upper quadrant measuring 4.5 x 2.8 cm. 2. No evidence for recurrent or residual disease.
== END | disposition home or self-care (01) ==
LOC: RADCTMAIN 09:03
PROVIDERS: ATTEND Internal Medicine Hematology & Oncology
DX: C18.1 Malignant neoplasm of appendix (principal); G62.0 Drug-induced polyneuropathy; Z71.3 Dietary counseling and surveillance; Z90.81 Acquired absence of spleen
CPT/HCPCS: 82565; 84520; 71270; 74178; 36415; Q9967

== ENCOUNTER → 2021-04-15 | Outpatient (CLI) | payer BC, OTHER ==
[2021-04-15 09:56] LABS: African American GFR (CKD) >90 (>60 ml/min/1.73 sqM); Blood Urea Nitrogen 5 mg/dL (9-20); Non-African American GFR(CKD) >90 (>60 ml/min/1.73 sqM)
--- NOTE | 2021-04-15 12:46 | CT ---
EXAMINATION TYPE: CT ChestAbdPelvis w con DATE OF EXAM: 04/15/2021 COMPARISON: 12/24/2020, 05/28/2020 HISTORY: 45-year-old male C18.1, colon and appendiceal cancer. TECHNIQUE: Contiguous axial scanning of the chest, abdomen, and pelvis performed with IV Contrast, pa tient injected with 100 mL of Isovue 300. Delayed images through the kidneys were obtained. Coronal/s agittal reconstructions performed. CT DLP: 1905 mGycm Automated exposure control for dose reduction was used. FINDINGS: CHEST: Heart normal size without pericardial effusion. Ectatic aortic root at 3.7 cm. Conventional arch vessel branching anatomy. Left anterior chest wall injection port with catheter tip in the lower SVC. Stable prominent 7 mm but nonenlarged upper left paratracheal lymph node. No thoracic lymphadenopathy by CT size criteria. Prominent bands of bibasilar scarring or atelectasis. No consolidation or pleural effusion. No suspic ious pulmonary nodules. ABDOMEN: No focal liver lesion. Portal venous system is patent. No biliary ductal dilatation. Cholecystectomy clips. Adrenal glands, right kidney, and pancreas within normal limits. Punctate nonobstructive 4 mm left renal calculus. Tiny cortical hypodensity anterior left kidney too small for accurate CT characterization measuring 8 mm, likely small cyst. Spleen surgically absent. Left upper quadrant fluid at the splenectomy bed measures 3.9 x 1.2 cm vers us 4.5 x 2.8 cm, previously. Unchanged oval 7.5 x 2.1 cm intramuscular lipoma of the left abdominal obliques, axial image 80 and s agittal image 46. No internal soft tissue density. Scarring along the anterior abdominal wall. Status post partial right hemicolectomy with anastomosis of the level of the hepatic flexure of the c olon. Oral contrast progressed to the rectum. There is also resection reanastomosis at the rectosigmo id junction. Moderate circumferential wall thickening of the rectum below the anastomosis. Some scattered prominent but nonenlarged mesenteric lymph nodes measure up to 7 mm. No omental caking is identified. PELVIS: Mild circumferential bladder wall thickening. Prostate gland measures 4.3 cm wide. Some presacral fat stranding appears increased. No abnormal fluid collection in the pelvis or pelvic lymphadenopathy. BONES: Mild degenerative change of the hips. Anterior endplate spondylosis lower thoracic spine. Mild multil evel degenerative disc disease. No osseous destructive process seen. IMPRESSION: 1. STATUS POST PARTIAL RIGHT HEMICOLECTOMY AND ADDITIONAL DISTAL COLON RESECTION WITH RECTOSIGMOID RE ANASTOMOSIS. THERE IS MODERATE CIRCUMFERENTIAL WALL THICKENING OF THE RECTUM BELOW THISSECOND ANASTOM OSIS. DIRECT VISUALIZATION RECOMMENDED. THIS COULD REPRESENT COLITIS, POSTTREATMENT CHANGE, OR RECURR ENT NEOPLASM. 2. LEFT UPPER QUADRANT FLUID AT THE SPLENECTOMY BED MEASURES SMALLER AT 3.9 X 1.2 CM (VERSUS 4.5 X 2. 8 CM, PREVIOUSLY). NO SUSPICIOUS LYMPHADENOPATHY OR OMENTAL CAKING IDENTIFIED.
== END | disposition home or self-care (01) ==
LOC: RADCTMAIN 08:59
PROVIDERS: ATTEND Internal Medicine Hematology & Oncology
DX: C18.1 Malignant neoplasm of appendix (principal); G62.0 Drug-induced polyneuropathy; Z90.81 Acquired absence of spleen; Z71.3 Dietary counseling and surveillance
CPT/HCPCS: 82565; 84520; 71260; 74177; 36415; Q9967

== ENCOUNTER 2021-05-26 08:55 | Day surgery (SDC) | payer BC, OTHER ==
[2021-05-24 11:23] VITALS: BMI 28.5
[~2021-05-26 08:55] MED LIST changes: -ACETAMINOPHEN TAB 500 MG TAB PO ONE; -DEXAMETHASONE SOD PHOSPHATE 10 MG/ML 1 ML VIAL IV ONE; -HYDROmorphone 0.5 MG/0.5 ML SYRINGE IVP PRN; +LACTATED RINGERS 1,000 ML IV SCH; +LIDOCAINE 1% (10MG/ML) FOR IV START INTRADERMA PRN; -MIDAZOLAM 2 MG/2 ML VIAL IV PRN; -ONDANSETRON 4 MG/2 ML VIAL IVP ONE; -Pre Op ABX Message 1 EACH MISC MISCELLANE ONE; -SCOPOLAMINE 1.5MG/72HR PATCH TRANSDERM ONE
[2021-05-26 09:53] VITALS: TEMP 98
[2021-05-26] MEDS ORDERED: LACTATED RINGERS 1,000 ML IV ONE (09:53)
[2021-05-26] MEDS ORDERED: MIDAZOLAM 2 MG/2 ML VIAL ONE (10:58)
[2021-05-26] MEDS ORDERED: .fentaNYL (PF) 50 MCG/ML AMP ONE (10:58)
[2021-05-26] MEDS ORDERED: PROPOFOL 10 MG/ML 20 ML VIAL IV ONE (10:58)
--- NOTE | 2021-05-26 11:02 | P.GSHP ---
History of Present Illness H&P Date: 05/26/21 Chief Complaint: History of colon cancer of the appendix Is a 46-year-old male who presents today for colonoscopy. Patient presents history of colon cancer the appendix. He denies any significant GI complaints. Past Medical History Past Medical History: Cancer, Eye Disorder, GERD/Reflux, Liver Disease Additional Past Medical History / Comment(s): Gout, bilateral Glaucoma, Fatty Liver. 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 Brain Aneurysm diagnosed 11/12. "Thumping sound in ears from brain aneurysm". History of Any Multi-Drug Resistant Organisms: None Reported Past Surgical History: Appendectomy, Hernia Repair Additional Past Surgical History / Comment(s): Colonoscopy, rubber band hemorrhoid ligation, broken collar bone as child. HIPEC Procedure ("19 hr surgery to clean organs after ruptured appendix") with Colostomy, which was then reversed after chemo was done. Past Anesthesia/Blood Transfusion Reactions: No Reported Reaction Past Psychological History: No Psychological Hx Reported Smoking Status: Former smoker Past Alcohol Use History: None Reported Additional Past Alcohol Use History / Comment(s): Quit smoking 8 yrs ago, smoked for 15 yrs on and off. Past Drug Use History: Marijuana Additional Drug Use History / Comment(s): Has medical card, uses [facility]ja[facility] daily. Aware no use 24 hrs prior to procedure. - Past Family History Mother Family Medical History: Cancer Additional Family Medical History / Comment(s): "Female Cancer." Father Additional Family Medical History / Comment(s): Heroin overdose. Medications and Allergies Home Medications Medication Instructions Recorded Confirmed Type Febuxostat [Uloric] 40 mg PO DAILY 03/05/18 05/24/21 History cloNIDine HCL [Catapres] 0.2 mg PO BID 09/22/20 05/24/21 History Gabapentin [Neurontin] 200 mg PO BID 10/06/20 05/24/21 History Citalopram Hydrobromide 10 mg PO QAM 05/24/21 05/24/21 History [Citalopram HBr] Allergies Allergy/AdvReac Type Severity Reaction Status Date / Time Penicillins Allergy Unknown Unknown Verified 05/24/21 11:23 Childhood Surgical - Exam Vital Signs Temp Pulse Resp BP Pulse Ox 98.0 F 78 18 151/89 97 05/26/21 09:52 05/26/21 09:52 05/26/21 09:52 05/26/21 09:52 05/26/21 09:52 - General well developed, well nourished, no distress - Eyes PERRL - ENT normal pinna - Neck no masses - Respiratory normal expansion - Cardiovascular Rhythm: regular - Abdomen Abdomen: soft, non tender Assessment and Plan Assessment: History of cancer the appendix. We'll perform colonoscopy.
--- NOTE | 2021-05-26 11:20 | P.OP ---
Date of Procedure: 05/26/21 Preoperative Diagnosis: History of lcolon cancer of the appendix Postoperative Diagnosis: Possible left colon colitis biopsy pending Procedure(s) Performed: Colonoscopy Anesthesia: MAC Surgeon: Juancarlos Foote Pathology: other (Left colon) Condition: stable Disposition: PACU Description of Procedure: The patient's placed on the endoscopy table in the lateral position. He received IV sedation. Digital rectal exam was performed which revealed a few external hemorrhoids. The flexible colonoscope was then placed patient anus and passed throughout colon. The scope could not be passed beyond the transverse colon secondary to tortuosity valve. There is also a very poor colonic prep. There is a large amount liquid stool in the colon. This point scope withdrawn. The left colon appeared to be mildly inflamed. A biopsies performed with a cold forcep. The remainder of the colon appeared normal. Scope was brought back the sigmoid colon was normal. Scope withdrawn into the rectum and this was normal. Scope was withdrawn for patient.
[2021-05-26 11:26] VITALS: RESP 16
[2021-05-26 11:40] VITALS: BP 124/81; PULSE 52
== END 2021-05-26 12:06 | disposition home or self-care (01) ==
LOC: ORWHC2ENDO 08:55
PROVIDERS: ATTEND Surgery
DX: Z08 Encounter for follow-up examination after completed treatment for malignant neoplasm (principal); Z85.038 Personal history of other malignant neoplasm of large intestine; K21.9 Gastro-esophageal reflux disease without esophagitis; M10.9 Gout, unspecified; Z87.891 Personal history of nicotine dependence
CPT/HCPCS: 45380; 88305; J2250; J3010; J2704

== ENCOUNTER → 2021-07-15 | Outpatient (CLI) | payer OTHER ==
--- NOTE | 2021-07-16 19:47 | CT ---
EXAMINATION TYPE: CT ChestAbdPelvis w con DATE OF EXAM: 07/15/2021 COMPARISON: CT 04/15/2021 HISTORY: Hx colon/appendix ca. Routine follow-up. CT DLP: 1606.20 mGycm Automated exposure control for dose reduction was used. CONTRAST: CT scan of the chest, abdomen and pelvis is performed with Oral Contrast and with IV Contrast, patien t injected with 100 mL of Isovue 300. FINDINGS: Anterior abdominal wall hernia contains bowel loops that is developed in the interval in th e midline at the umbilical location. There is a port in the left pectoral region coursing via subclav sonny approach into the superior vena cava LUNGS: The lungs are showing some probable basilar atelectatic change or scarring similar to prior ex am, there is no concerning parenchymal mass or nodule identified. There is no pleural effusion or p neumothorax seen. The tracheobronchial tree is patent. MEDIASTINUM: There are no greater than 1 cm hilar or mediastinal lymph nodes. No pericardial effusi on is seen. AORTA: No significant abnormality is seen. OTHER: No additional significant abnormality is seen. LIVER/GB: Patient is post cholecystectomy. There is no evident liver mass.. PANCREAS: No significant abnormality is seen. SPLEEN: No significant abnormality is seen. ADRENALS: No significant abnormality is seen. KIDNEYS: No significant abnormality is seen. REPRODUCTIVE ORGANS: Prostate calcification is again seen.. BOWEL: No evident bowel obstruction. Loops of small bowel show wall thickening. Subcutaneous soft t issue of the right lower quadrant likely due to remote ostomy is stable. Some atrophy of the rectus a bdominis musculature is present inferiorly. Postop change noted to the sigmoid colon. There is thicke vandana with areas of metallic density again noted along the lateral conal fascia, paracolic gutter on t he left FREE AIR: No Free Air visible. ASCITES: None seen. RETROPERITONEAL ADENOPATHY: No retroperitoneal adenopathy is seen. LYMPH NODES: No greater than 1 cm abdominal or pelvic lymph nodes are appreciated. URINARY BLADDER: No significant abnormality is seen. PELVIC ADENOPATHY: None visualized. OSSEOUS STRUCTURES: No significant abnormality is seen. IMPRESSION: Anterior abdominal wall hernia. Small bowel wall thickening may be due to post treatment change but i s indeterminate No evident recurrence.
== END | disposition home or self-care (01) ==
LOC: RADCTMAIN 17:30
PROVIDERS: ATTEND Internal Medicine Hematology & Oncology
DX: C18.1 Malignant neoplasm of appendix (principal); K43.9 Ventral hernia without obstruction or gangrene
CPT/HCPCS: 71260; 74177; Q9967

== ENCOUNTER 2021-08-02 07:54 | Day surgery (SDC) | payer OTHER ==
[2021-07-29 11:29] VITALS: BMI 29.8
[~2021-08-02 07:54] MED LIST changes: +ACETAMINOPHEN TAB 500 MG TAB PO PRN; +HEPARIN SODIUM,PORCINE/PF 5,000 UNIT/0.5 ML SYRINGE SQ PRN; +MIDAZOLAM 2 MG/2 ML VIAL ONE; +ONDANSETRON 4 MG/2 ML VIAL IVP PRN; +PROPOFOL 10 MG/ML 20 ML VIAL IV ONE; +fentaNYL (PF) 50 MCG/ML 2 ML AMP IV PRN; +fentaNYL (PF) 50 MCG/ML 2 ML AMP ONE
[2021-08-02 08:16] VITALS: RESP 16; TEMP 98.7
--- NOTE | 2021-08-02 09:13 | P.GSHP ---
History of Present Illness H&P Date: 08/02/21 Chief Complaint: Appendiceal cancer This a 46-year-old male with previous history of appendiceal cancer. Patient presents today for Port-A-Cath removal. Past Medical History Past Medical History: Cancer, Eye Disorder, GERD/Reflux, Hypertension, Liver Disease Additional Past Medical History / Comment(s): Gout, bilateral Glaucoma, Fatty Liver. 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 Brain Aneurysm diagnosed 11/12. "Thumping sound in ears from brain aneurysm". History of Any Multi-Drug Resistant Organisms: None Reported Past Surgical History: Appendectomy, Hernia Repair Additional Past Surgical History / Comment(s): Colonoscopy, rubber band hemorrhoid ligation, broken collar bone as child. HIPEC Procedure ("19 hr surgery to clean organs after ruptured appendix") with Colostomy, which was then reversed after chemo was done. Past Anesthesia/Blood Transfusion Reactions: No Reported Reaction Additional Past Anesthesia/Blood Transfusion Reaction / Comment(s): unknown blood transfusion hx Smoking Status: Former smoker - Past Family History Mother Family Medical History: Cancer Additional Family Medical History / Comment(s): "Female Cancer." Father Additional Family Medical History / Comment(s): Heroin overdose. Medications and Allergies Home Medications Medication Instructions Recorded Confirmed Type Febuxostat [Uloric] 40 mg PO DAILY 03/05/18 07/29/21 History cloNIDine HCL [Catapres] 0.2 mg PO BID 09/22/20 07/29/21 History Gabapentin [Neurontin] 200 mg PO BID 10/06/20 07/29/21 History Citalopram Hydrobromide 10 mg PO QAM 05/24/21 07/29/21 History [Citalopram HBr] Allergies Allergy/AdvReac Type Severity Reaction Status Date / Time Penicillins Allergy Unknown Unknown Verified 08/02/21 08:11 Childhood Surgical - Exam Vital Signs Temp Pulse Resp BP Pulse Ox 98.7 F 67 16 103/62 96 08/02/21 08:14 08/02/21 08:14 08/02/21 08:14 08/02/21 08:14 08/02/21 08:14 - General well developed, well nourished, no distress - Eyes PERRL - ENT normal pinna - Neck no masses - Respiratory normal expansion - Cardiovascular Rhythm: regular - Abdomen Abdomen: soft, non tender Assessment and Plan Assessment: History of appendiceal cancer. We'll perform Port-A-Cath removal.
[2021-08-02] MEDS ORDERED: BUPIVACAIN-EPI 0.25%-1:200,000 30 ML VIAL SQ ONE ×2 (09:49→10:01)
--- NOTE | 2021-08-02 10:09 | P.OP ---
Date of Procedure: 08/02/21 Preoperative Diagnosis: History of penicillin cancer Postoperative Diagnosis: Removal of left subclavian Port-A-Cath Procedure(s) Performed: Port-A-Cath placement Anesthesia: MARBIN Surgeon: Juancarlos Foote Pathology: none sent Condition: stable Disposition: PACU Description of Procedure: Patient's placed on the operative table in the supine position. He received general endotracheal anesthesia. His left chest was prepped and draped in sterile fashion. The area was anesthetized 1% local Xylocaine. A skin incision was made over the Port-A-Cath. Using blunt and sharp dissection with cautery the Port-A-Cath was dissected free and sent to pathology. The skin was closed interrupted 3-0 Monocryl suture. Dermabond was applied. Patient top she will was sent to recovery room in stable condition.
[2021-08-02 11:48] VITALS: BP 97/56; PULSE 59
== END 2021-08-02 11:51 | disposition home or self-care (01) ==
LOC: OR 07:54
PROVIDERS: ATTEND Surgery
DX: C18.1 Malignant neoplasm of appendix (principal); K21.9 Gastro-esophageal reflux disease without esophagitis; I10 Essential (primary) hypertension
CPT/HCPCS: 36590; J2250; J0690; J2405; J3010; J2704; J1644

== ENCOUNTER → 2021-08-12 | Outpatient (CLI) | payer OTHER ==
[2021-08-12 11:12] LABS: Basophils % (A) 1.5 %; Eosinophils # (A) 2.38 X 10*3/uL (0.04-0.35); HCT 44.4 % (39.6-50.0); HGB 14.7 g/dL (13.0-17.0); Immature Grans, Automated 0.5 %; Lymphocytes # (A) 3.96 X 10*3/uL (0.90-5.00); Lymphocytes % (A) 29.9 %; MCH 30.9 pg (27.0-32.0); MCHC 33.1 g/dL (32.0-37.0); MCV 93.3 fL (80.0-97.0); Monocytes # (A) 1.08 X 10*3/uL (0.20-1.00); Monocytes % (A) 8.2 %; NRBC Per 100 WBC 0 /100 WBCS (0.0-0.0); Neutrophils # (A) 5.57 X 10*3/uL (1.80-7.70); Neutrophils % (A) 41.9 %; Platelet Count 411 X 10*3/uL (140-440); RBC 4.76 X 10*6/uL (4.40-5.60); WBC 13.25 X 10*3/uL (4.50-10.00)
== END | disposition home or self-care (01) ==
LOC: LABPAT 08:12
PROVIDERS: ATTEND Surgery
DX: Z01.812 Encounter for preprocedural laboratory examination (principal); K43.0 Incisional hernia with obstruction, without gangrene
CPT/HCPCS: 36415; 83036; 85025

== ENCOUNTER 2021-08-16 05:58 | Day surgery (SDC) | payer OTHER ==
[2021-08-12 11:37] VITALS: BMI 29.8
[~2021-08-16 05:58] MED LIST changes: +DEXAMETHASONE SOD PHOSPHATE 4 MG/ML 1 ML VIAL IV ONE; +MIDAZOLAM 2 MG/2 ML VIAL IV PRN; -MIDAZOLAM 2 MG/2 ML VIAL ONE; +ONDANSETRON 4 MG/2 ML VIAL IVP ONE; -ONDANSETRON 4 MG/2 ML VIAL IVP PRN; -PROPOFOL 10 MG/ML 20 ML VIAL IV ONE; -fentaNYL (PF) 50 MCG/ML 2 ML AMP IV PRN; -fentaNYL (PF) 50 MCG/ML 2 ML AMP ONE
[2021-08-16 07:24] LABS: Glucose,Whole Blood 99 mg/dL (75-99)
[2021-08-16] MEDS ORDERED: GLYCOPYRROLATE 0.2 MG/ML 2 ML VIAL ONE (07:48)
[2021-08-16] MEDS ORDERED: KETAMINE 10 MG/ML 20 ML VIAL ONE (07:48)
[2021-08-16] MEDS ORDERED: MIDAZOLAM 2 MG/2 ML VIAL ONE (07:48)
[2021-08-16] MEDS ORDERED: fentaNYL (PF) 50 MCG/ML 2 ML AMP ONE (07:48)
[2021-08-16] MEDS ORDERED: LIDOCAINE 1% INJ 10MG/ML (20 ML MDV) ONE (07:48)
[2021-08-16] MEDS ORDERED: ROCURONIUM 10 MG/ML (5 ML VIAL) IV ONE (07:48)
[2021-08-16] MEDS ORDERED: SUCCINYLCHOLINE CHLORIDE 100 MG/5 ML SYR IV ONE (07:48)
[2021-08-16] MEDS ORDERED: PROPOFOL 10 MG/ML 20 ML VIAL IV ONE (07:48)
[2021-08-16] MEDS ORDERED: SODIUM CHLORIDE 0.9% (PF) 10 ML VIAL ONE (07:48)
[2021-08-16] MEDS ORDERED: HYDROmorphone (PF) 1 MG/ML ONE (07:48)
[2021-08-16] MEDS ORDERED: NEOSTIGMINE 1 MG/ML 10 ML VIAL ONE (07:48)
[2021-08-16] MEDS ORDERED: ROPIVACAINE 5 MG/ML 30 ML VIAL ONE (07:48)
--- NOTE | 2021-08-16 07:49 | P.GSHP ---
History of Present Illness H&P Date: 08/16/21 Chief Complaint: Incisional hernia Is a 46-year-old male who's developed an incisional hernia. Patient underwent previous exploratory laparotomy at for colorectal oncologic surgery. Patient developed a midline incisional hernia.. He presents today for laparoscopic robotic system repair. Past Medical History Past Medical History: Cancer, Eye Disorder, GERD/Reflux, Hypertension, Liver Disease Additional Past Medical History / Comment(s): Gout, bilateral Glaucoma, Fatty Liver. 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 Brain Aneurysm diagnosed 11/12. "Thumping sound in ears from brain aneurysm". History of Any Multi-Drug Resistant Organisms: None Reported Past Surgical History: Appendectomy, Hernia Repair Additional Past Surgical History / Comment(s): Colonoscopy, rubber band hemorrhoid ligation, broken collar bone as child. HIPEC Procedure ("19 hr surgery to clean organs after ruptured appendix") with Colostomy, which was then reversed after chemo was done. PORT A CATH WITH REMVAL AND REINSERTION 08/02/21 Past Anesthesia/Blood Transfusion Reactions: No Reported Reaction Additional Past Anesthesia/Blood Transfusion Reaction / Comment(s): unknown blood transfusion hx Smoking Status: Former smoker - Past Family History Mother Family Medical History: Cancer Additional Family Medical History / Comment(s): "Female Cancer." Father Additional Family Medical History / Comment(s): Heroin overdose. Medications and Allergies Home Medications Medication Instructions Recorded Confirmed Type Febuxostat [Uloric] 40 mg PO DAILY 03/05/18 08/12/21 History cloNIDine HCL [Catapres] 0.2 mg PO BID 09/22/20 08/12/21 History Gabapentin [Neurontin] 200 mg PO BID 10/06/20 08/12/21 History Citalopram Hydrobromide 10 mg PO QAM 05/24/21 08/12/21 History [Citalopram HBr] Allergies Allergy/AdvReac Type Severity Reaction Status Date / Time Penicillins Allergy Unknown Unknown Verified 08/16/21 06:44 Childhood Surgical - Exam Vital Signs Temp Pulse Resp BP Pulse Ox 98.8 F 78 20 115/71 96 08/16/21 06:45 08/16/21 06:45 08/16/21 06:45 08/16/21 06:45 08/16/21 06:45 - General well developed, well nourished, no distress - Eyes PERRL - ENT normal pinna - Neck no masses - Respiratory normal expansion - Cardiovascular Rhythm: regular - Abdomen Abdomen: soft, non tender Hernia: incisional (15 cm incisional hernia located along the midline) Assessment and Plan Assessment: Incisional hernia. We'll perform laparoscopic robotic system repair. Patient aware the risk of conversion to the open procedure due to adhesions.
[2021-08-16] MEDS ORDERED: BUPIVACAIN-EPI 0.25%-1:200,000 30 ML VIAL SQ ONE (08:34)
[2021-08-16 09:21] VITALS: TEMP 99
[2021-08-16] MEDS: HYDROmorphone 0.5 MG/0.5 ML SYRINGE IVP PRN ×3 (09:24→09:43)
--- NOTE | 2021-08-16 09:26 | P.OP ---
Date of Procedure: 08/16/21 Preoperative Diagnosis: Incisional hernia Postoperative Diagnosis: Incisional hernia Extensive adhesions Procedure(s) Performed: Diagnostic laparoscopy Lysis of extensive adhesions Repair of incisional hernia with mesh Anesthesia: MARBIN Surgeon: Juancarlos Foote Estimated Blood Loss (ml): 25 Pathology: none sent Condition: stable Disposition: PACU Operative Findings: Incisional hernia measuring approximately 10 x 5 cm Prolene mesh onlay Secured with secure strap tacker Description of Procedure: The patient's placed on the operative table in the supine position. He received general endotracheal anesthesia. His abdomen was prepped and draped usual fashion. The patient had a long midline incision extending from his sternal xiphoid to the pubic area. He has also had evidence of a colostomy reversal with a colostomy scar in the right lower quadrant. A tap block was performed using 1% local Xylocaine. The skin was incised in the left upper quadrant. And then using a optical trocar under direct vision the peritoneal cavity was entered. Upon entering the cavity the areas insufflated. There were extensive adhesions in this area. At this point a second incision was made in the left lateral area and using the optical trocar under direct visual visitation the peritoneal cavity was entered again and there was extensive adhesions of this point. At this point decided to convert the procedure of open procedure. The trochars withdrawn. The skin was incised in midline over the hernia. Using left cautery and sharp dissection the hernia sac was dissected free. The fascia external oblique was exposed. Using electrocautery. Hernia sac was opened and there were extensive adhesions. These were lysed using sharp dissection. Approximately 20 minutes of operative time used to lyse adhesions. The hernia was then closed interrupted 3-0 Ethibond suture. This repair was then buttressed with #1 Ann-Marie fix suture. A piece of Prolene mesh was cut to appropriate size. The mesh measured approximately 6 x 6 cm. It was secured with a secure strap tacker. A GWEN drains placed over top the mesh and brought through separate stab incision and then Josiane's fascia close [place]. Skin was closed kemi. Patient top she will was sent to recovery room in stable condition.
[2021-08-16] MEDS ORDERED: LACTATED RINGERS 1,000 ML IV ONE ×2 (09:35→13:36)
[2021-08-16 10:00] VITALS: RESP 16
[2021-08-16] MEDS ORDERED: KETOROLAC 30 MG/ML 1 ML VIAL ONE (10:29)
[2021-08-16] MEDS ORDERED: HYDROmorphone 0.5 MG/0.5 ML SYRINGE IVP ONE (10:30)
[2021-08-16] MEDS ORDERED: KETOROLAC 15 MG/ML 1 ML VIAL IVP ONE (10:30)
[2021-08-16] MEDS ORDERED: TAMSULOSIN 0.4 MG CAP.ER.24H PO ONE (11:53)
[2021-08-16 15:31] VITALS: BP 139/92; PULSE 70
--- NOTE | 2021-08-17 10:58 | P.ANPRN ---
Procedure Note - Anesthesia - Nerve Block Performed Bilateral Erector Spinae Single Time Out Performed: Yes Date of Procedure: 08/16/21 Procedure Start Time: 07:12 Procedure Stop Time: :18 Location of Patient: PreOp Indication: Acute Post-Operative Pain, Requested by Surgeon Sedation Type: Sedate with meaningful contact maintained Preparation: Sterile Prep Position: Prone Catheter: Indwelling Needle Types: Pajunk Needle Gauge: 21 Ultrasound used to visualize needle placement: Yes Ultrasound used to observe medication spread: Yes Blood Aspirated: No Pain Paresthesia on Injection Noted: No Resistance on Injection: Normal Image Stored and Saved: Yes Events: Uneventful and Well Tolerated (ropi .5% 15cc plus ns 10cc given bilaterally at L1)
== END 2021-08-16 16:31 | disposition home or self-care (01) ==
LOC: OR 05:58
PROVIDERS: ATTEND Surgery
DX: K43.2 Incisional hernia without obstruction or gangrene (principal); K66.0 Peritoneal adhesions (postprocedural) (postinfection); K21.9 Gastro-esophageal reflux disease without esophagitis; I10 Essential (primary) hypertension; M10.9 Gout, unspecified; H40.9 Unspecified glaucoma; K76.0 Fatty (change of) liver, not elsewhere classified; Z85.09 Personal history of malignant neoplasm of other digestive organs; Z92.21 Personal history of antineoplastic chemotherapy; I67.1 Cerebral aneurysm, nonruptured; Z93.3 Colostomy status; Z98.890 Other specified postprocedural states; Z95.828 Presence of other vascular implants and grafts; Z87.891 Personal history of nicotine dependence; Z80.9 Family history of malignant neoplasm, unspecified; Z81.3 Family history of other psychoactive substance abuse and dependence; Z88.0 Allergy status to penicillin; F32.A Depression, unspecified; Z79.899 Other long term (current) drug therapy
CPT/HCPCS: 64999; 86900; 86901; 86850; 49560; 49568; C1781; J2250; J1100; J2710; J0690; J2405; J2001; J3010; J1170 ×2; J2795; J1885; J0330; J2704; J1644

== ENCOUNTER → 2021-10-31 | Outpatient (CLI) | payer OTHER ==
--- NOTE | 2021-10-31 12:29 | CT ---
EXAMINATION TYPE: CT ChestAbdPelvis w con DATE OF EXAM: 10/31/2021 COMPARISON: CT dated 07/15/2021 HISTORY: malignant neoplasm of appendix CT DLP: 1686.2 mGycm Automated exposure control for dose reduction was used. CONTRAST: CT scan of the chest, abdomen and pelvis is performed with Oral Contrast and with IV Contrast, patien t injected with 100 mL of Isovue 300. FINDINGS: LUNGS: Stable bilateral basal pulmonary atelectasis. Stable 2 mm nodule at the posterior aspect of th e right upper lobe. No suspicious or progressive lung lesion. Patent trachea and main bronchi. No ple ural effusion. MEDIASTINUM: There are no greater than 1 cm hilar or mediastinal lymph nodes. No pericardial effusi on is seen. OTHER: No aggressive bone lesion. LIVER/GB: Suspected hepatic steatosis. With this limitation, no definite hepatic focal lesion. Previo us cholecystectomy. PANCREAS: No significant abnormality is seen. SPLEEN: Previous splenectomy. ADRENALS: No significant abnormality is seen. KIDNEYS: 3 mm nonobstructing renal calculus seen in each kidney, otherwise unremarkable kidneys. BOWEL: Unremarkable stomach and duodenum. No evidence of bowel obstruction. Unremarkable colonic franklin stomosis in the pelvis. Uncomplicated colonic diverticulosis. Colonic wall thickening of the be relat ed to chronic colitis, please correlate clinically. Unremarkable ileocolic anastomosis in the right s lizbeth of the abdomen. REPRODUCTIVE ORGANS: No gross abnormality seen. LYMPH NODES: Subcentimeter right mesenteric lymph nodes, nonspecific. They are slightly more prominen t compared to the previous CT scan, attention on follow-up. No pathologically enlarged lymph nodes in the abdomen or the pelvis. OSSEOUS STRUCTURES: No aggressive bone lesion. OTHER: Duplication of IVC. No sizable Ascites. Anterior abdominal wall scarring. IMPRESSION: Stable condition in the chest. Slightly more prominent yet subcentimeter right mesenteric lymph nodes, attention on follow-up. Otherwise no evidence of metastatic disease seen in the chest, abdomen or the pelvis. Incidental find ings as detailed above.
== END | disposition home or self-care (01) ==
LOC: RADCTMAIN 08:04
PROVIDERS: ATTEND Internal Medicine Hematology & Oncology
DX: Z03.89 Encounter for observation for other suspected diseases and conditions ruled out (principal); C18.1 Malignant neoplasm of appendix
CPT/HCPCS: 71260; 74177; Q9967

== ENCOUNTER → 2022-03-03 | Outpatient (CLI) | payer OTHER ==
[2022-03-03 10:27] LABS: African American GFR (CKD) >90 (>60 ml/min/1.73 sqM); Blood Urea Nitrogen 7 mg/dL (9-20); Non-African American GFR(CKD) >90 (>60 ml/min/1.73 sqM)
--- NOTE | 2022-03-03 15:03 | CT ---
EXAMINATION TYPE: CT ChestAbdPelvis w con DATE OF EXAM: 03/03/2022 COMPARISON: 10/31/2021, 07/15/2021 HISTORY: 46-year-old male C18.1, colon/appendiceal cancer. TECHNIQUE: Contiguous axial scanning of the chest, abdomen, and pelvis performed with IV Contrast, pa tient injected with 80cc mL of Isovue 300. Delayed images through the kidneys were obtained. Coronal/ sagittal reconstructions performed. CT DLP: 1982 mGycm Automated exposure control for dose reduction was used. FINDINGS: CHEST: The heart is normal size without pericardial effusion. Mildly ectatic aortic root at 3.6 cm. In the short vessel branching anatomy. No thoracic lymphadenopathy by CT size criteria. Unchanged tiny 2 mm pulmonary nodule posterior right upper lobe, axial image 17. No consolidation or pleural effusion. Similar strandy atelectasis/scarring at the lower lungs. No pleural effusions. ABDOMEN: Liver borderline enlarged at 17.1 cm. There is diffuse low-attenuation. Tiny nonspecific 6 mm nodule anterior margin of the liver adjacent to the falciform ligament is nonspecific but remains unchanged. Portal venous system is patent. No biliary ductal dilatation. Cholecystectomy clips. Adrenal glands, left kidney, and pancreas within normal limits. 4 mm nonobstructive right renal calculus. Spleen remains surgically absent. Some unchanged strandy scarring remains here. No dilated small bowel, free fluid, or free air. Postsurgical change with proximal colon resection and ileocolonic anastomosis along the ascending col on. Right lower quadrant mesenteric lymph nodes are redemonstrated measuring up to 2.1 x 1.1 cm and 1.1 c m. This is unchanged from 10/31/2021 but again, noted to be larger from 07/15/2021. Ongoing follow-up re commended. No new or progressive lymphadenopathy seen. Staple line along the rectosigmoid junction from prior resection and re-anastomosis. PELVIS: Bladder is urine distended. Prostate gland measures 4.1 cm wide. No abnormal fluid collection in the pelvis or pelvic lymphadenopathy. BONES: A few small bone islands within the proximal left femur and inferior ischial rami remain unchanged. M ild degenerative spurring of both hips. Anterior plate spondylosis lower thoracic spine. No osseous d estructive process. IMPRESSION: 1. STATUS POST PROXIMAL COLON RESECTION WITH ILEOCOLONIC ANASTOMOSIS ALONG THE ASCENDING COLON. A COU PLE BORDERLINE ENLARGED MESENTERIC LYMPH NODES HERE IN THE RIGHT LOWER QUADRANT MEASURING UP TO 2.1 X 1.1 CM REMAIN UNCHANGED FROM 10/31/2021. AGAIN, WE NOTE THAT THEY ARE LARGER COMPARED TO 07/15/2021. ON GOING FOLLOW-UP RECOMMENDED. 2. OTHERWISE, NO EVIDENCE FOR METASTATIC DISEASE IN THE CHEST, ABDOMEN, OR PELVIS. 3. BORDERLINE SIZE LIVER WITH MODERATE TO SEVERE HEPATIC STEATOSIS. 4. STATUS POST SPLENECTOMY. BIBASILAR SCARRING, 4 MM NONOBSTRUCTIVE RIGHT RENAL CALCULUS, AND PREVIOU S DISTAL COLON RESECTION WITH REANASTOMOSIS AT THE RECTOSIGMOID JUNCTION.
== END | disposition home or self-care (01) ==
LOC: RADCTMAIN 08:54
PROVIDERS: ATTEND Internal Medicine Hematology & Oncology
DX: Z03.89 Encounter for observation for other suspected diseases and conditions ruled out (principal); C18.1 Malignant neoplasm of appendix
CPT/HCPCS: 82565; 84520; 71260; 74177; 36415; Q9967